=== PATIENT | male | born 1980 | race Caucasian/White ===

== ENCOUNTER 2019-11-19 22:44 | Inpatient (IN) ==
[2019-11-19] MEDS ORDERED: PIPERACILL/TAZOBAC CONSULT ACTIVE PRN (23:25)
[2019-11-19] MEDS ORDERED: PIPERACILLIN/TAZOBACTAM 4.5 GM/120 ML BAG IV ONE (23:25)
[2019-11-19] MEDS ORDERED: VANCOMYCIN HCL 2,000 MG in SODIUM CHLORIDE 0.9% 500 ML IV ONE (23:25)
[2019-11-19] MEDS ORDERED: VANCOMYCIN CONSULT ACTIVE PRN (23:25)
[2019-11-19] MEDS ORDERED: SODIUM CHLORIDE 0.9% 1000ML 1,000 ML IV ONE (23:25)
--- NOTE | 2019-11-19 23:51 | Emergency Department Note ---
History of Present Illness General Chief complaint: Back Injury/Pain Stated complaint: ABCESS RIGHT AXILAE History of Present Illness Maximum Pain Intensity: 9 This 39-year-old prisoner presents to the ER complaining of right axilla infection has been on Bactrim and Rocephin at the present Location: Right axilla Quality: Painful Severity: Moderate Duration: Past few days Timing: Started few days ago Context: Symptoms got worse and patient came in Modifying factors: better with nothing; worse with patient Patient denies diabetes. He complains of subjective fever and chills. No temperature taken. Patient denies chest pain, dyspnea, cough, congestion, IV drug abuse. No diabetes. Home Medications Home Medications Medication Instructions Recorded Confirmed Type ceftriaxone 1 g IM DAILY 11/20/19 11/20/19 History docusate sodium 100 mg PO BID 11/20/19 11/20/19 History hydrochlorothiazide 12.5 mg PO DAILY 11/20/19 11/20/19 History ibuprofen 600 mg PO TID PRN 11/20/19 11/20/19 History losartan 50 mg PO DAILY 11/20/19 11/20/19 History omeprazole 20 mg PO BID 11/20/19 11/20/19 History rosuvastatin 10 mg PO DAILY 11/20/19 11/20/19 History sulfamethoxazole-trimethoprim 1 tab PO BID 11/20/19 11/20/19 History [Bactrim DS] Allergies Allergy/AdvReac Type Severity Reaction Status Date / Time No Known Allergies Allergy Verified 11/20/19 00:02 Past Med/Surg History Medical History High blood pressure Surgical History No pertinent past surgical history Social History Smoking Status: Current some day smoker Tobacco Type: E-cigarettes / Vaping Preferred Language: Citizen Of [place] Feels Safe at Home: Yes Review of Systems A total of 10 systems reviewed and were otherwise negative Physical Exam Vital Signs Vital Signs - 24 hr 11/19/19 22:59 11/20/19 00:04 11/20/19 00:23 Temperature 37.6 C H Temperature Source Oral Pulse Rate 105 H 95 H Pulse Rate from SpO2 Sensor Respiratory Rate 18 13 Respiratory Effort / Characteristics Non-Labored Spontaneous Respiratory Depth Normal Respiratory Pattern Regular Blood Pressure 115/79 124/49 L Blood Pressure Mean 91 83 Pulse Oximetry 98 99 Oxygen Delivery Method Room Air Room Air Sepsis Recent Fever Within 48 Hours No Sepsis New/Unexplained Change in Mental Status No Sepsis Action Taken by Nursing No Action Required 11/20/19 00:24 11/20/19 01:17 11/20/19 01:30 Temperature Temperature Source Pulse Rate 105 H Pulse Rate from SpO2 Sensor Respiratory Rate 20 23 Respiratory Effort / Characteristics Non-Labored Respiratory Depth Respiratory Pattern Blood Pressure 122/72 140/84 Blood Pressure Mean 79 107 Pulse Oximetry 99 98 98 Oxygen Delivery Method Sepsis Recent Fever Within 48 Hours Sepsis New/Unexplained Change in Mental Status Sepsis Action Taken by Nursing 11/20/19 01:31 11/20/19 02:00 11/20/19 02:30 Temperature Temperature Source Pulse Rate 112 H 98 H Pulse Rate from SpO2 Sensor 98 H Respiratory Rate 21 19 18 Respiratory Effort / Characteristics Respiratory Depth Respiratory Pattern Blood Pressure 119/72 116/73 Blood Pressure Mean 85 84 Pulse Oximetry 98 Oxygen Delivery Method Sepsis Recent Fever Within 48 Hours Sepsis New/Unexplained Change in Mental Status Sepsis Action Taken by Nursing VITALS: Vitals are noted on the nurse's note and reviewed by myself. Vital signs mildly tachycardic. GENERAL: White male, in no acute distress, nondiaphoretic, well-developed well- nourished. SKIN: Right axillary region with surrounding cellulitis with a small area of drainage with induration 15 cm x 12 cm, the rest of the skin was without rashes, erythema, edema, or bruising. There is no tenting of the skin. Capillary reflex less than 2 seconds. HEAD: Normocephalic atraumatic. EARS: External auditory canals clear, tympanic membranes pearly mendoza without e rythema or effusion bilaterally. EYES: Pupils equal round and reactive to light and accommodation. Conjunctivae without injection, sclerae without icterus. Extraocular movements intact. NOSE: Patent, turbinates without inflammation or discharge. MOUTH: Mucous membranes moist. Pharynx without erythema or exudate. Uvula midline. Airway patent. Tongue does not deviate. NECK: Supple without nuchal rigidity. No lymphadenopathy. No thyromegaly. Cervical spine is nontender. No JVD. HEART: Regular rate and rhythm LUNGS: Clear to auscultation bilaterally without wheezes, rales or rhonchi. No retractions or accessory muscle use. ABDOMEN: Positive bowel sounds x 4. Normal tympanic percussion. Soft, nontender, without masses or organomegaly. Oquendo sign negative. No guarding or rebound tenderness. No CVA tenderness MUSCULOSKELETAL: No muscle atrophy, erythema, or edema noted. NEURO: Patient was alert and oriented to person place and time. Normal sensation to light and sharp touch. No focal neurological deficits. Course Administered Medications Discontinued Medications Acetaminophen (Ofirmev) Confirm Administered Dose 1,000 mg IV .STK-MED ONE Stop: 11/20/19 01:32 Last Admin: 11/20/19 01:44 Dose: 1,000 mg Documented by: [id number] Piperacillin Sod/Tazobactam Sod (Zosyn) 4.5 gm in 120 mls @ 240 mls/hr IV NOW ONE Stop: 11/19/19 23:54 Last Infusion: 11/20/19 01:13 Dose: 0 mls/hr Documented by: [id number] Admin: 11/20/19 00:40 Dose: 240 mls/hr Documented by: [id number] Vancomycin HCl 2,000 mg/ (Sodium Chloride) 540 mls @ 200 mls/hr IV NOW ONE Stop: 11/20/19 02:06 Last Admin: 11/20/19 01:13 Dose: 200 mls/hr Documented by: [id number] Sodium Chloride (Nss 1000ml) 1,000 mls @ 999 mls/hr IV .Q1H1M ONE Stop: 11/20/19 00:25 Last Infusion: 11/20/19 01:08 Dose: 0 mls/hr Documented by: [id number] Admin: 11/20/19 00:14 Dose: 999 mls/hr Documented by: [id number] Sodium Chloride (Nss 1000ml) 1,000 mls @ 999 mls/hr IV .Q1H1M ONE Stop: 11/20/19 02:45 Last Infusion: 11/20/19 01:46 Dose: 0 mls/hr Documented by: [id number] Admin: 11/20/19 01:46 Dose: 999 mls/hr Documented by: [id number] Acetaminophen (Ofirmev) 1,000 mg in 100 mls @ 400 mls/hr IV NOW STA Stop: 11/20/19 02:00 Last Admin: 11/20/19 01:48 Dose: Not Given Documented by: [id number] Potassium Chloride (Klor-Con M10) 40 meq PO NOW STA Stop: 11/20/19 01:58 Last Admin: 11/20/19 02:21 Dose: 40 meq Documented by: [id number] Medical Decision Making Medical Records Attestation: I reviewed the patient's medical records. Home Medications Current Medication List: was personally reviewed by me Laboratory Data Attestation: I reviewed the patient's lab results. Result diagrams: 11/19/19 23:50 11/19/19 23:50 Lab Results 11/19/19 11/19/19 11/19/19 Range/Units 23:50 23:50 23:50 WBC 30.59 H* (4.8-10.8) K/uL RBC 4.43 L (4.7-6.1) M/uL Hgb 12.7 L (14.0-18.0) g/dL Hct 37.0 L (42-52) % MCV 83.5 (80-100) fL MCH 28.7 (25-34) pg MCHC 34.3 (32-36) g/dL RDW Std Deviation 40.0 (36.4-46.3) fL RDW Coeff of Maurice 13.2 (11.5-14.5) % Plt Count 286 (130-400) K/uL MPV 11.3 H (7.4-10.4) fL Immature Gran % (Auto) 0.5 % Neut % (Auto) 86.7 % Lymph % (Auto) 6.6 % [place] % (Auto) 5.8 % Eos % (Auto) 0.4 % Baso % (Auto) 0.0 % Neut # (Auto) 26.53 H (1.4-6.5) K/uL Lymph # (Auto) 2.01 (1.2-3.4) K/uL [place] # (Auto) 1.78 H (0.11-0.59) K/uL Eos # (Auto) 0.12 (0-0.5) K/uL Baso # (Auto) 0.01 (0-0.2) K/uL Immature Gran # (Auto) 0.14 H (0.00-0.02) K/uL PT 11.5 (9.0-12.0) Seconds INR 1.1 (0.9-1.1) APTT 33.5 H (21.0-31.0) Seconds PTT Ratio 1.2 Sodium 136 (136-145) mmol/L Potassium 3.2 L (3.5-5.1) mmol/L Chloride 103 (98-107) mmol/L Carbon Dioxide 26 (21-32) mmol/L Anion Gap 7.0 (3-11) BUN 13 (7-18) mg/dl Creatinine 1.72 H (0.6-1.4) mg/dl Est Cr Clr Drug Dosing 80.3 ml/min Est GFR ( Amer) 56.8 Est GFR (Non-Af Amer) 49.0 BUN/Creatinine Ratio 7.3 L (10-20) Glucose 108 H (70-99) mg/dl Lactate (0.4-2.0) mmol/L Calcium 9.0 (8.5-10.1) mg/dl Magnesium 1.9 (1.8-2.4) mg/dl Total Bilirubin 1.0 (0.2-1) mg/dl AST 19 (15-37) U/L ALT 47 (12-78) U/L Alkaline Phosphatase 172 H (45-117) U/L Total Protein 7.7 (6.4-8.2) gm/dl Albumin 3.4 (3.4-5.0) gm/dl Globulin 4.3 H (2.5-4.0) gm/dl Albumin/Globulin Ratio 0.8 L (0.9-2) Urine Color Urine Appearance (Clear) Urine pH (4.5-7.5) Ur Specific [place] (1.000-1.030) Urine Protein (Negative) Urine Glucose (UA) (Negative) Urine Ketones (Negative) Urine Blood (Negative) Urine Nitrite (Negative) Urine Bilirubin (Negative) Urine Urobilinogen (Negative) Ur Leukocyte Esterase (Negative) 11/19/19 11/20/19 Range/Units 23:50 01:00 WBC (4.8-10.8) K/uL RBC (4.7-6.1) M/uL Hgb (14.0-18.0) g/dL Hct (42-52) % MCV (80-100) fL MCH (25-34) pg MCHC (32-36) g/dL RDW Std Deviation (36.4-46.3) fL RDW Coeff of Maurice (11.5-14.5) % Plt Count (130-400) K/uL MPV (7.4-10.4) fL Immature Gran % (Auto) % Neut % (Auto) % Lymph % (Auto) % [place] % (Auto) % Eos % (Auto) % Baso % (Auto) % Neut # (Auto) (1.4-6.5) K/uL Lymph # (Auto) (1.2-3.4) K/uL [place] # (Auto) (0.11-0.59) K/uL Eos # (Auto) (0-0.5) K/uL Baso # (Auto) (0-0.2) K/uL Immature Gran # (Auto) (0.00-0.02) K/uL PT (9.0-12.0) Seconds INR (0.9-1.1) APTT (21.0-31.0) Seconds PTT Ratio Sodium (136-145) mmol/L Potassium (3.5-5.1) mmol/L Chloride (98-107) mmol/L Carbon Dioxide (21-32) mmol/L Anion Gap (3-11) BUN (7-18) mg/dl Creatinine (0.6-1.4) mg/dl Est Cr Clr Drug Dosing ml/min Est GFR ( Amer) Est GFR (Non-Af Amer) BUN/Creatinine Ratio (10-20) Glucose (70-99) mg/dl Lactate 1.1 (0.4-2.0) mmol/L Calcium (8.5-10.1) mg/dl Magnesium (1.8-2.4) mg/dl Total Bilirubin (0.2-1) mg/dl AST (15-37) U/L ALT (12-78) U/L Alkaline Phosphatase (45-117) U/L Total Protein (6.4-8.2) gm/dl Albumin (3.4-5.0) gm/dl Globulin (2.5-4.0) gm/dl Albumin/Globulin Ratio (0.9-2) Urine Color Yellow Urine Appearance Clear (Clear) Urine pH 5.0 (4.5-7.5) Ur Specific [place] 1.009 (1.000-1.030) Urine Protein Negative (Negative) Urine Glucose (UA) Negative (Negative) Urine Ketones Negative (Negative) Urine Blood Negative (Negative) Urine Nitrite Negative (Negative) Urine Bilirubin Negative (Negative) Urine Urobilinogen Negative (Negative) Ur Leukocyte Esterase Negative (Negative) Imaging Data Attestation: I personally reviewed and interpreted this imaging study as follows: Blood Pressure Blood Pressure Findings: Normal blood pressure MDM Narrative Prior records reviewed and summarized as above. Triage Nursing notes reviewed. Additional history obtained from correctional officers. The patient's history was concerning for swelling and redness of the skin. Differential diagnosis: Etiologies such as cellulitis, abscess, MRSA infection, DVT, necrotizing fasciitis, dermatitis, drug eruption, as well as others were entertained.. Physical examination: As above ER treatment provided: Zosyn, vancomycin, IV fluids, potassium On reassessment the patient felt better. Diagnostics interpreted by me: The labs revealed leukocytosis, hypokalemia Blood cultures pending, wound culture pending Imaging: Chest x-ray with no acute consolidation, pneumothorax or free air per my interpretation CT CHEST Without Contrast: Subcutaneous soft tissue stranding and edema at the right axilla and anterior upper chest with overlying skin thickening, correlate for cellulitis No evidence of focal fluid collection on noncontrast imaging No soft tissue gas No adenopathy The lungs are clear No pericardial or pleural effusion Radiologist: Hay Woo M.D. Consultation: A consultation was placed with Dr. Chang, hospitalist. The case was discussed and diagnostics were reviewed. The patient was evaluated in the ER for further treatment. This appears to be extensive cellulitis to the right chest wall. Patient has been on antibiotics at the present. Symptoms have been getting worse. He was given IV antibiotics here. Medicine was consulted. He will be evaluated for possible admission. By the evaluation outlined above emergent etiologies such as abscess, necrotizing fasciitis, DVT, as well as others were deemed relatively unlikely. The pt informed about the findings as listed above. All questions were answered and pleased with the treatment. The chart was completed utilizing [employer] voice recognition software. Grammatical errors, random word insertions, pronoun errors, and incomplete sentences are an occassional consequence of this system due to software limitations, ambient noise, and hardware issues. Any formal questions or concerns about the content, text, or information contained within the body of this dictation should be directly addressed to the physician clerical assistant for clarification. Impression & Plan Cellulitis of chest wall, Leukocytosis, Acute hypokalemia Discharge Plan Visit Data Chief Complaint: Back Injury/Pain Stated Complaint: ABCESS RIGHT AXILAE ED Provider: Jeevan Anaya ED Midlevel Provider: Syl Crespo Discharge Problem: Cellulitis of chest wall, Leukocytosis, Acute hypokalemia Patient Disposition: Being Evaluated by Hospitalist Condition: Fair Forms Stand Alone Forms: [facility] Prescriptions Prescriptions: No Action losartan 50 mg Tablet 50 mg PO DAILY RF: 0 sulfamethoxazole-trimethoprim [Bactrim DS] 800-160 mg Tablet 1 tab PO BID RF: 0 ceftriaxone 1 gram Recon Soln 1 g IM DAILY RF: 0 docusate sodium 100 mg Capsule 100 mg PO BID RF: 0 ibuprofen 600 mg Tablet 600 mg PO TID PRN (Reason: Pain) RF: 0 rosuvastatin 10 mg Tablet 10 mg PO DAILY RF: 0 hydrochlorothiazide 12.5 mg Tablet 12.5 mg PO DAILY RF: 0 omeprazole 20 mg Tablet,Delayed Release (Dr/Ec) 20 mg PO BID RF: 0 Referrals Referrals: Indra GUERRERO [Primary Care Provider] -
[2019-11-20 00:14] LABS: INR 1.1 (0.9-1.1); Partial Thromboplastin Ratio 1.2; Partial Thromboplastin Time 33.5 Seconds (21.0-31.0); Prothrombin Time 11.5 Seconds (9.0-12.0)
[2019-11-20 00:19] LABS: Hemoglobin 12.7 g/dL (14.0-18.0); Mean Corpuscular Hemoglobin 28.7 pg (25-34); Mean Corpuscular Hgb Conc 34.3 g/dL (32-36); Mean Corpuscular Volume 83.5 fL (80-100); Mean Platelet Volume 11.3 fL (7.4-10.4); Platelet Count 286 K/uL (130-400); RDW Coefficient of Variation 13.2 % (11.5-14.5); Red Blood Count 4.43 M/uL (4.7-6.1); White Blood Count 30.59 K/uL (4.8-10.8)
[2019-11-20 00:20] LABS: Basophils # (auto) 0.01 K/uL (0-0.2); Eosinophils # (auto) 0.12 K/uL (0-0.5); Eosinophils % (auto) 0.4 %; Immature Granulocytes # (auto) 0.14 K/uL (0.00-0.02); Immature Granulocytes % (auto) 0.5 %; Lymphocytes # (auto) 2.01 K/uL (1.2-3.4); Lymphocytes % (auto) 6.6 %; Monocytes # (auto) 1.78 K/uL (0.11-0.59); Monocytes % (auto) 5.8 %; Neutrophils # (auto) 26.53 K/uL (1.4-6.5); Neutrophils % (auto) 86.7 %
[2019-11-20 00:24] LABS: Albumin Level 3.4 gm/dl (3.4-5.0); BUN Creatinine Ratio 7.3 (10-20); Creatinine Clr Calc Pharmacy 80.3 ml/min; Est GFR (African American) 56.8; Magnesium 1.9 mg/dl (1.8-2.4); Potassium 3.2 mmol/L (3.5-5.1)
[2019-11-20 00:27] LABS: Albumin Globulin Ratio 0.8 (0.9-2); Globulin 4.3 gm/dl (2.5-4.0); Total Protein 7.7 gm/dl (6.4-8.2)
[2019-11-20 01:19] LABS: Appearance Urine Clear (Clear); Bilirubin Urine Negative (Negative); Blood Urine Negative (Negative); Color Urine Yellow; Glucose Urine UA Negative (Negative); Ketones Urine Negative (Negative); Leukocyte Esterase Urine Negative (Negative); Nitrite Urine Negative (Negative); Protein Urine Negative (Negative); Specific Gravity Urine 1.009 (1.000-1.030); Urobilinogen Urine Negative (Negative)
[2019-11-20] MEDS ORDERED: ACETAMINOPHEN 1000 MG/100 ML IV IV ONE (01:31)
[2019-11-20] MEDS ORDERED: SODIUM CHLORIDE 0.9% 1000ML 1,000 ML IV ONE (01:45)
[2019-11-20] MEDS ORDERED: ACETAMINOPHEN 1,000 MG/100 ML VIAL IV STA (01:46)
[2019-11-20] MEDS ORDERED: POTASSIUM CHLORIDE 10 MEQ TABCR PO STA (01:57)
--- NOTE | 2019-11-20 02:56 | History & Physical Report ---
Date of Service November 20, 2019 Assessment & Plan (1) Cellulitis of right axilla: Cellulitis of right axilla and chest wall/failure of outpatient treatment- Patient had been placed on ceftriaxone 1 g IM daily and Bactrim DS p.o. twice daily, both of which will be held. Continue vancomycin IV and Zosyn IV begun in the ED. Proximal border of infection outlined, and should be followed on examination. Present on Admission?: Yes (2) Cellulitis of chest wall: See above Present on Admission?: Yes (3) Failure of outpatient treatment: See above Present on Admission?: Yes (4) Hypertension: Hypertension/hypokalemia- Hold HCTZ. Continue losartan 50 mg p.o. daily. NSS + KCl 20 mEq at 80 mils per hour Repeat labs serially Present on Admission?: Yes (5) Acute hypokalemia: See above Present on Admission?: Yes (6) GERD (gastroesophageal reflux disease): Continue omeprazole 20 mg p.o. twice daily Present on Admission?: Yes (7) Obesity: BMI 42.5. Noted as risk factor for vascular disease Present on Admission?: Yes History of Present Illness Chief Complaint: Patient presents to the emergency department with worsening right axillary and upper chest wall redness, swelling and pain despite use of Bactrim and another antibiotic Primary Care Provider: [facility] The patient is a 39-year-old male resident of [facility], with a past medical history including hypertension and GERD. He reports that after shaving his axilla, he developed redness, swelling and pain, that did not improve despite being placed on ceftriaxone 1 g IM daily and Bactrim DS p.o. twice daily. He was brought to the ED for further assessment, with work-up in ED including a CT scan which did not show a drainable fluid pocket. Allergies Allergy/AdvReac Type Severity Reaction Status Date / Time No Known Allergies Allergy Verified 11/20/19 00:02 Home Medications Home Medications Medication Instructions Recorded Confirmed Type ceftriaxone 1 g IM DAILY 11/20/19 11/20/19 History docusate sodium 100 mg PO BID 11/20/19 11/20/19 History hydrochlorothiazide 12.5 mg PO DAILY 11/20/19 11/20/19 History ibuprofen 600 mg PO TID PRN 11/20/19 11/20/19 History losartan 50 mg PO DAILY 11/20/19 11/20/19 History omeprazole 20 mg PO BID 11/20/19 11/20/19 History rosuvastatin 10 mg PO DAILY 11/20/19 11/20/19 History sulfamethoxazole-trimethoprim 1 tab PO BID 11/20/19 11/20/19 History [Bactrim DS] Past Med/Surg History Medical History High blood pressure Surgical History No pertinent past surgical history Social History Smoking Status: Former smoker Tobacco Type: E-cigarettes / Vaping Cigarettes Per Day: pt is in fdc, states he vapes; Preferred Language: [place] Beliefs That Will Affect Care: None Current Living Situation: Other Current Living Situation Comment: [facility] Feels Safe at Home: Yes Review of Systems Review of Systems: The patient denies chest pain, palpitations, shortness of breath, dyspnea on exertion, cough, lower extremity swelling, sore throat, chills, sweats, weight change, fatigue, nausea, vomiting, diarrhea , constipation, abdominal pain, pelvic pain, blood in urine or stool, dysuria, urinary frequency or urgency, lightheadedness, dizziness, headache, memory loss, imbalance, focal or generalized weakness, numbness or tingling in arms or legs, generalized arthralgias or myalgias, back or neck pain, or night sweats. The review of systems is otherwise negative other than for that already noted above, and at least 10 systems have been reviewed. Physical Exam Physical Exam: The patient is awake, alert and oriented 3, well developed and well nourished, normocephalic and atraumatic, lying in bed and in no acute distress. HEENT--PERRL, EOMI, mucous membranes and oropharynx normal. Neck--supple. No JVD. No bruits. Thyroid normal, trachea midline, no adenopathy. Heart--normal S1 and S2. No murmurs, rubs or gallops. Lungs--clear bilaterally, no respiratory distress, no accessory muscle use. Abdomen--normal bowel sounds and soft. Nontender. Nondistended. Extremities--no cyanosis or clubbing. No edema. There are good distal pulses b/l. Dermatologic--moderately severe erythema, warmth and pain in right axilla extending onto lateral pectoralis area. Neurologic--cranial nerves II through XII grossly intact. Rheumatologic--normal range of motion. Psychiatric--normal affect. Results & Data Results & Data ([facility]) Vital Signs (Past 12 Hours) Vital Signs Temp Pulse Resp BP Pulse Ox 11/20/19 02:30 18 116/73 11/20/19 02:00 98 H 19 119/72 98 11/20/19 01:31 112 H 21 11/20/19 01:30 23 140/84 98 11/20/19 01:17 105 H 20 122/72 98 11/20/19 00:24 99 11/20/19 00:23 99 11/20/19 00:04 95 H 13 124/49 L 11/19/19 22:59 99.7 F H 105 H 18 115/79 98 Laboratory Results Laboratory Results WBC 30.59 K/uL (4.8-10.8) H* 11/19/19 23:50 RBC 4.43 M/uL (4.7-6.1) L 11/19/19 23:50 Hgb 12.7 g/dL (14.0-18.0) L 11/19/19 23:50 Hct 37.0 % (42-52) L 11/19/19 23:50 MCV 83.5 fL (80-100) 11/19/19 23:50 MCH 28.7 pg (25-34) 11/19/19 23:50 MCHC 34.3 g/dL (32-36) 11/19/19 23:50 RDW Std Deviation 40.0 fL (36.4-46.3) 11/19/19 23:50 RDW Coeff of Maurice 13.2 % (11.5-14.5) 11/19/19 23:50 Plt Count 286 K/uL (130-400) 11/19/19 23:50 MPV 11.3 fL (7.4-10.4) H 11/19/19 23:50 Immature Gran % (Auto) 0.5 % 11/19/19 23:50 Neut % (Auto) 86.7 % 11/19/19 23:50 Lymph % (Auto) 6.6 % 11/19/19 23:50 [place] % (Auto) 5.8 % 11/19/19 23:50 Eos % (Auto) 0.4 % 11/19/19 23:50 Baso % (Auto) 0.0 % 11/19/19 23:50 Neut # (Auto) 26.53 K/uL (1.4-6.5) H 11/19/19 23:50 Lymph # (Auto) 2.01 K/uL (1.2-3.4) 11/19/19 23:50 [place] # (Auto) 1.78 K/uL (0.11-0.59) H 11/19/19 23:50 Eos # (Auto) 0.12 K/uL (0-0.5) 11/19/19 23:50 Baso # (Auto) 0.01 K/uL (0-0.2) 11/19/19 23:50 Immature Gran # (Auto) 0.14 K/uL (0.00-0.02) H 11/19/19 23:50 PT 11.5 Seconds (9.0-12.0) 11/19/19 23:50 INR 1.1 (0.9-1.1) 11/19/19 23:50 APTT 33.5 Seconds (21.0-31.0) H 11/19/19 23:50 PTT Ratio 1.2 11/19/19 23:50 Sodium 136 mmol/L (136-145) 11/19/19 23:50 Potassium 3.2 mmol/L (3.5-5.1) L 11/19/19 23:50 Chloride 103 mmol/L (98-107) 11/19/19 23:50 Carbon Dioxide 26 mmol/L (21-32) 11/19/19 23:50 Anion Gap 7.0 (3-11) 11/19/19 23:50 BUN 13 mg/dl (7-18) 11/19/19 23:50 Creatinine 1.72 mg/dl (0.6-1.4) H 11/19/19 23:50 Est Cr Clr Drug Dosing 80.3 ml/min 11/19/19 23:50 Est GFR ( Amer) 56.8 11/19/19 23:50 Est GFR (Non-Af Amer) 49.0 11/19/19 23:50 BUN/Creatinine Ratio 7.3 (10-20) L 11/19/19 23:50 Glucose 108 mg/dl (70-99) H 11/19/19 23:50 Lactate 1.1 mmol/L (0.4-2.0) 11/19/19 23:50 Calcium 9.0 mg/dl (8.5-10.1) 11/19/19 23:50 Magnesium 1.9 mg/dl (1.8-2.4) 11/19/19 23:50 Total Bilirubin 1.0 mg/dl (0.2-1) 11/19/19 23:50 AST 19 U/L (15-37) 11/19/19 23:50 ALT 47 U/L (12-78) 11/19/19 23:50 Alkaline Phosphatase 172 U/L (45-117) H 11/19/19 23:50 Total Protein 7.7 gm/dl (6.4-8.2) 11/19/19 23:50 Albumin 3.4 gm/dl (3.4-5.0) 11/19/19 23:50 Globulin 4.3 gm/dl (2.5-4.0) H 11/19/19 23:50 Albumin/Globulin Ratio 0.8 (0.9-2) L 11/19/19 23:50 Urine Color Yellow 11/20/19 01:00 Urine Appearance Clear (Clear) 11/20/19 01:00 Urine pH 5.0 (4.5-7.5) 11/20/19 01:00 Ur Specific [place] 1.009 (1.000-1.030) 11/20/19 01:00 Urine Protein Negative (Negative) 11/20/19 01:00 Urine Glucose (UA) Negative (Negative) 11/20/19 01:00 Urine Ketones Negative (Negative) 11/20/19 01:00 Urine Blood Negative (Negative) 11/20/19 01:00 Urine Nitrite Negative (Negative) 11/20/19 01:00 Urine Bilirubin Negative (Negative) 11/20/19 01:00 Urine Urobilinogen Negative (Negative) 11/20/19 01:00 Ur Leukocyte Esterase Negative (Negative) 11/20/19 01:00 Diagnostic Findings [place], [place] [phone] CT Scan Report Patient: ARLEEN KHAN EAdmit Date: 11/19/19 MR#: [id number]: [address] Acct ID:[id number]: Date: 08/27/1948City Zip: [place] [address] Age: 71Location: ED Sex: M Room/Bed: Att Phy:Diagnosis: FEVER Debbie Phy: Dariel Barba, MDService Date: 11/19/19 Fam Phy:Interpreting Phy: Philip Tena MD Admit Phy: Ordering Phy: Jeevan Anaya MD cc: ~ CT SCAN OF THE BRAIN WITHOUT IV CONTRAST CLINICAL HISTORY: Change in mental status. COMPARISON STUDY: CT of the brain dated 07/22/2018. TECHNIQUE: Unenhanced axial CT scan of the brain is performed from the vertex to the skull base. A dose lowering technique was utilized adhering to the principles of ALARA. CT DOSE: 1368.34 mGycm FINDINGS: Brain parenchyma: There are age-related involutional changes noting mild subcortical and periventricular microangiopathic change. There is no hemorrhage, mass effect, or evidence of acute territorial ischemia by CT criteria. Martínez- white matter differentiation is preserved. No extra-axial fluid collection is seen. Ventricles, sulci, cisterns: Prominent secondary to involutional change. Intracranial vasculature: There is atherosclerotic calcification of the cavernous carotid arteries. Calvarium: Unremarkable. Sinuses and mastoids: There is subtotal opacification of left sphenoid sinus. Thickening and sclerosis of the sinus wall indicates chronicity. Trace fluid is noted in the right sphenoid sinus. Moderate mucosal thickening seen within the anterior ethmoid sinuses and the right frontal sinus. The mastoid air cells are well pneumatized. Orbits: The bony orbits are grossly intact. There are bilateral ocular lens implants. IMPRESSION: 1. There is no hemorrhage, mass effect, or evidence of acute territorial ischemia by CT criteria. 2. Paranasal sinus disease as above. ACT 112: Negative or not required by law. Electronically signed by: Philip Tena M.D. 11/19/2019 10:00 PM Dictated: 11/19/192157 Transcribed: 11/19/192157 Code Status & VTE Plan Code Status Full code VTE Prophylaxis Plan VTE Prophylaxis will be ordered: Yes PG Care Time/CCT Total # of Minutes Spent Total Time Spent with Patient: Total time spent is greater than 50% in coordination of care (as documented) at patient's floor/unit and/or counseling patient: Coding Level of Care Code 45216 Initial Inpt Care Lvl 3 Diagnoses Cellulitis of right axilla L03.111 Cellulitis of chest wall L03.313 Failure of outpatient treatment Z78.9 Hypertension I10 Acute hypokalemia E87.6 GERD (gastroesophageal reflux disease) K21.9 Obesity E66.9
[2019-11-20] MEDS ORDERED: ONDANSETRON INJ 2 MG/ML 2 ML VIAL IV PRN (03:55)
[2019-11-20] MEDS ORDERED: VANCOMYCIN HCL 1,000 MG in SODIUM CHLORIDE 0.9% 250 ML IV SCH (03:55)
[2019-11-20] MEDS ORDERED: ALUMINUM/MAGNESIUM SUSP 30 ML UDC PO PRN (03:55)
[2019-11-20] MEDS ORDERED: PIPERACILL/TAZOBAC CONSULT ACTIVE PRN (03:55)
[2019-11-20] MEDS ORDERED: MAGNESIUM HYDROXIDE SUSP 30 ML UDC PO PRN (03:55)
[2019-11-20] MEDS ORDERED: VANCOMYCIN CONSULT ACTIVE PRN (03:55)
[2019-11-20] MEDS: NSS + 20MEQ KCL 20 MEQ/1,000 ML BAG IV SCH ×2 (04:47→17:12)
[2019-11-20] MEDS: PIPERACILLIN/TAZOBACTAM 4.5 GM in DEXTROSE 5% 100 ML IV SCH ×3 (05:36→22:25)
--- NOTE | 2019-11-20 07:29 | XRay Report ---
XR chest 1V portable HISTORY: 39 years-old Male SEPSIS acute sepsis COMPARISON: Chest CT 11/20/2019 TECHNIQUE: Portable AP view of the chest FINDINGS: Cardiomediastinal and hilar silhouettes are within normal limits. There is no pneumothorax, pleural e ffusion, airspace consolidation or overt pulmonary edema. The bones of the chest appear grossly intac t. IMPRESSION: No acute process. ACT 112: Negative or not required by law. The above report was generated using voice recognition software. It may contain grammatical, syntax o r spelling errors. Electronically signed by: Jean Paul Apodaca M.D. 11/20/2019 7:27 AM
[2019-11-20] MEDS: TRAMADOL HCL 50 MG TABLET PO PRN ×3 (08:03→20:20)
[2019-11-20] MEDS: DOCUSATE SODIUM 100 MG CAP PO SCH ×2 (08:03→20:21)
[2019-11-20] MEDS: PANTOprazole 40 MG TAB PO SCH ×2 (08:04→20:22)
[2019-11-20] MEDS: LOSARTAN POTASSIUM 50 MG TAB PO SCH (08:04)
[2019-11-20] MEDS: ROSUVASTATIN CALCIUM 10 MG TAB PO SCH (08:04)
--- NOTE | 2019-11-20 08:21 | CT Scan Report ---
CT chest wo con CT DOSE: 1247.49 mGy.cm CLINICAL HISTORY: 39 years-old Male with right arm pit infx, ? abcess. Acute soft tissue swelling of the right axilla TECHNIQUE: Multiaxial CT images of the chest were performed without contrast. A dose lowering techni que was utilized adhering to the principles of ALARA. COMPARISON: Chest radiograph of same day FINDINGS: Unremarkable thyroid. Minimal residual thymic tissue of the anterior mediastinum. Prominent nonenlarg ed paratracheal and subcarinal lymph nodes measuring up to 9 mm are likely on a reactive basis. Heart is normal in size. Minimal coronary artery calcifications. No thoracic aortic aneurysm. There is no pneumothorax or pleural effusion. No airspace consolidation, overt pulmonary edema or airspace consol idation typical for pneumonia. The central airways are patent. No acute process of the imaged upper a bdomen. There is mild nonspecific bilateral perinephric stranding. Hepatic steatosis. There is modera te subcutaneous edema and skin thickening of the right axilla, prepectoral and subpectoral tissues wi th mildly enlarged right axillary lymph nodes measuring up to 1.4 cm. No drainable fluid collection o r soft tissue mass. Bones appear intact. There are no suspicious bone lesions. IMPRESSION: 1. Moderate subcutaneous edema and skin thickening of the right axilla, prepectoral and subpectoral t issues suggestive of cellulitis with phlegmon. No discrete abscess. 2. Mildly enlarged right axillary lymph nodes are likely reactive. 3. No pleural effusion or airspace consolidation typical for pneumonia. ACT 112: Negative or not required by law. Electronically signed by: Jean Paul Apodaca M.D. 11/20/2019 8:20 AM
--- NOTE | 2019-11-20 09:49 | Pharmacy Report ---
Pharmacy Abx Initial Consult - Date of Service November 20, 2019 - Pharmacy Dosing Scope Date of Consult: 11/20/19 Consultation requested by: Dr. Murphy Pharmacy is consulted to initiate vancomycin and Zosyn IV dosing therapy, order appropriate labs and adjust drug dose/frequency. - Subjective The patient is a 39 year old M admitted on 11/20/19 02:53. - Objective Height: 5 ft 10 in Weight: 134.2 kg Vital Signs (Past 12hrs): Vital Signs Temp Pulse Pulse Resp BP BP BP 11/20/19 07:21 36.8 C 98 H 18 138/88 11/20/19 06:19 94 H 11/20/19 04:16 36.8 C 86 20 146/90 H 11/20/19 03:30 92 H 18 11/20/19 03:00 92 H 22 117/66 11/20/19 02:30 18 116/73 11/20/19 02:00 98 H 19 119/72 11/20/19 01:31 112 H 21 11/20/19 01:30 23 140/84 11/20/19 01:17 105 H 20 122/72 11/20/19 00:24 11/20/19 00:23 11/20/19 00:04 95 H 13 124/49 L 11/19/19 22:59 37.6 C H 105 H 18 115/79 Pulse Ox 11/20/19 07:21 98 11/20/19 06:19 11/20/19 04:16 98 11/20/19 03:30 98 11/20/19 03:00 96 11/20/19 02:30 11/20/19 02:00 98 11/20/19 01:31 11/20/19 01:30 98 11/20/19 01:17 98 11/20/19 00:24 99 11/20/19 00:23 99 11/20/19 00:04 11/19/19 22:59 98 Lab Results (24hrs): Laboratory Tests (24 Hours) 11/19/19 11/19/19 23:50 23:50 WBC 30.59 H* Neut # (Auto) 26.53 H Creatinine 1.72 H Est Cr Clr Drug Dosing 80.3 Micro Results: 11/19/19 23:25 Gram Stain - Final Arm,Right Deep Wound Culture - Pending 11/19/19 00:39 Aerobic Blood Culture - Pending Blood Anaerobic Blood Culture - Pending 11/19/19 23:50 Aerobic Blood Culture - Pending Blood Anaerobic Blood Culture - Pending - Assessment & Plan Assessment * 39 year old M who presented to [facility] for upper chest wall redness, swelling and pain despite being on ceftriaxone 1 g IM daily and Bactrim DS p.o. twice daily as an outpatient * Placed on vancomcyin and Zosyn empirically in the Emergency Department * Blood, R arm wound cultures obtained and pending * Scr 1.72 upon admission. Could not confirm baseline. Repeat SCr ordered for 11/20 with AM labs. Plan Vancomycin IV * Estimated PK Parameters: Vd 0.5 L/kg, Herve 0.066 hr-1, t1/2 10.5 hr * Loading dose: 2000 mg (15 mg/kg) * Maintenance dose: 1000 mg IV (~8 mg/kg) every 12 hours * Goal trough level for: 10 to 15 mcg/mL * Will assess renal function tomorrow morning. Dose/frequency may need adjusted. Trough will also be ordered at this time. * A less than traditional dose has been selected due to likelihood of drug accumulation in obese patient. Piperacillin/tazobactam * 4.5 g bolus administered over 30 minutes, then 4.5 g IV extended infusion every 8 hours for CrCl greater than 20 mL/min * Aggressive dosing selected due to BMI 35 or more Pharmacy will continue to follow and will adjust dose/frequency as necessary. Thank you.
[2019-11-20] MEDS: VANCOMYCIN HCL 1,000 MG in SODIUM CHLORIDE 0.9% 250 ML IV SCH (12:08)
--- NOTE | 2019-11-20 14:14 | Hospitalist Progress Note ---
Date of Service November 20, 2019 Assessment & Plan (1) Cellulitis of right axilla: Cellulitis of right axilla and chest wall/failure of outpatient treatment with ceftriaxone and Bactrim. - Continue vanc/Zosyn - Proximal border of infection outlined and should be followed on examination -> Improving. - Follow blood and drainage culture. (2) Hypertension: BP is 125/75 today. - Hold HCTZ for low K+ - Continue losartan (3) GERD (gastroesophageal reflux disease): - Continue PPI (4) Obesity: BMI 42.5. Noted as risk factor for vascular disease. (5) DVT prophylaxis: Heparin 5000 units Q12h Admission and Anticipated Discharge Date Admission Date: November 20, 2019 Subjective Some improvement already on IV abx. Still painful in the right axillary region. Reports no fevers/chills, chest pain, shortness of breath, abdominal pain, nausea, or vomiting. Physical Exam Constitutional: WD/WN, vitals as above Eyes: EOM intact bilaterally; no conjunctival abnormality ENMT: external ear and nose normal, oropharynx normal Neck: trachea midline, no thyromegaly normal visual inspection Respiratory: normal respiratory effort, lungs clear to auscultation no respiratory distress Cardiovascular: RRR, no murmur, no edema Gastrointestinal (Abdomen): Inspection/Auscultation: abdomen normal to inspection; abdomen not distended Musculoskeletal: no cyanosis or clubbing, extremities motor strength 5/5 Skin: + induration (Right axillary. Outlined with ink. Drainage.) and + wound Neurologic: moves all extremities and awake Psychiatric: Orientation: alert, oriented to person and cooperative Results & Data Results & Data ([facility]) Vital Signs (Past 12 Hours) Vital Signs Temp Pulse Pulse Resp BP BP BP 11/20/19 11:27 37.2 C 82 18 126/76 11/20/19 07:21 36.8 C 98 H 18 138/88 11/20/19 06:19 94 H 11/20/19 04:16 36.8 C 86 20 146/90 H 11/20/19 03:30 92 H 18 11/20/19 03:00 92 H 22 117/66 11/20/19 02:30 18 116/73 Pulse Ox 11/20/19 11:27 99 11/20/19 07:21 98 11/20/19 06:19 11/20/19 04:16 98 11/20/19 03:30 98 11/20/19 03:00 96 11/20/19 02:30 PG Care Time/CCT Total # of Minutes Spent Total Time Spent with Patient: Total time spent is greater than 50% in coordination of care (as documented) at patient's floor/unit and/or counseling patient: Coding Level of Care Code 97191 Subseq Hosp Care Lvl 3 Diagnoses Cellulitis of right axilla L03.111 Hypertension I10 GERD (gastroesophageal reflux disease) K21.9 Obesity E66.9 DVT prophylaxis Z29.9
[2019-11-20] MEDS: ACETAMINOPHEN 325 MG TAB PO PRN (20:20)
[2019-11-20] MEDS ORDERED: HEPARIN SODIUM (PORCINE) 7,500 UNITS in SYRINGE 0 ML SQ SCH (21:00)
[2019-11-20] MEDS ORDERED: MoRPHine SULFATE 2 MG/ML CARP IV STA (22:41)
[2019-11-21] MEDS: VANCOMYCIN HCL 1,000 MG in SODIUM CHLORIDE 0.9% 250 ML IV SCH (00:46)
[2019-11-21] MEDS: TRAMADOL HCL 50 MG TABLET PO PRN ×3 (02:10→11:46)
[2019-11-21] MEDS: NSS + 20MEQ KCL 20 MEQ/1,000 ML BAG IV SCH ×2 (05:51→18:16)
[2019-11-21] MEDS: PIPERACILLIN/TAZOBACTAM 4.5 GM in DEXTROSE 5% 100 ML IV SCH ×3 (05:51→21:35)
[2019-11-21] MEDS ORDERED: MoRPHine SULFATE 4 MG/ML 1 ML CARP\\VIAL IV STA (05:54)
[2019-11-21] MEDS: LOSARTAN POTASSIUM 50 MG TAB PO SCH (07:34)
[2019-11-21] MEDS: ROSUVASTATIN CALCIUM 10 MG TAB PO SCH (07:34)
[2019-11-21] MEDS: DOCUSATE SODIUM 100 MG CAP PO SCH ×2 (07:35→20:52)
[2019-11-21] MEDS: PANTOprazole 40 MG TAB PO SCH ×2 (07:36→20:52)
[2019-11-21 07:54] LABS: Hematocrit (blood only) 36.1 % (42-52); Hemoglobin 11.9 g/dL (14.0-18.0); Mean Corpuscular Volume 84.9 fL (80-100); Mean Platelet Volume 11.6 fL (7.4-10.4); Platelet Count 293 K/uL (130-400); RDW Coefficient of Variation 13.6 % (11.5-14.5); RDW Standard Deviation 41.8 fL (36.4-46.3); Red Blood Count 4.25 M/uL (4.7-6.1); White Blood Count 21.86 K/uL (4.8-10.8)
[2019-11-21 08:25] LABS: BUN Creatinine Ratio 7.5 (10-20); Calcium 8.4 mg/dl (8.5-10.1); Est GFR (African American) 94.4; Est GFR (Non-African American) 81.4; Potassium 3.3 mmol/L (3.5-5.1)
[2019-11-21] MEDS ORDERED: HEPARIN SOD 5,000 UNIT/0.5 ML VIAL SQ SCH (09:00)
[2019-11-21] MEDS ORDERED: POTASSIUM CHLORIDE 20 MEQ TABCR PO ONE (09:45)
--- NOTE | 2019-11-21 11:24 | Ultrasound Report ---
ULTRASOUND OF THE RIGHT AXILLA CLINICAL HISTORY: Cellulitis. COMPARISON STUDY: CHEST CT dated 11/20/2019. FINDINGS: Real-time, grayscale, and color flow sonography of the soft tissues of the right axilla is performed at the indicated site of interest. Soft tissue edema and subcutaneous fluid is noted in the right axilla. There is focal phlegmonous change seen laterally which measures 3.1 x 1.2 x 1.6 cm. No organized/drainable fluid collection is seen at this time. IMPRESSION: 1. Soft tissue edema subcutaneous fluid in the right axilla is consistent with reported history of sy novitis. 2. There is a 3.1 cm focus of phlegmonous change in the right axilla with no organized/drainable flui d collection seen at this time. Electronically signed by: Philip Tena M.D. 11/21/2019 11:22 AM
[2019-11-21] MEDS: ACETAMINOPHEN 325 MG TAB PO PRN (11:45)
[2019-11-21] MEDS: CLINDAMYCIN 600 MG in DEXTROSE 5% 50 ML IV SCH ×2 (12:06→19:33)
[2019-11-21] MEDS: VANCOMYCIN HCL 1,500 MG in SODIUM CHLORIDE 0.9% 500 ML IV SCH (12:41)
--- NOTE | 2019-11-21 13:00 | Hospitalist Progress Note ---
Date of Service November 21, 2019 Assessment & Plan (1) Cellulitis of right axilla: Cellulitis of right axilla and chest wall/failure of outpatient treatment with ceftriaxone and Bactrim. - Continue vanc/Zosyn - Proximal border of infection outlined and should be followed on examination -> Worse today. Has clearly gone past the areas outlined. Will re-outline today. - Ultrasound shows phlegmon, but no abscess at present. NO indication of fascitis either on imaging or physical exam. - Follow blood and drainage culture. (2) Hypertension: BP is 140/90 today. - Hold HCTZ for low K+ - Continue losartan (3) GERD (gastroesophageal reflux disease): - Continue PPI (4) Obesity: BMI 42.5. Noted as risk factor for vascular disease. (5) DVT prophylaxis: Heparin 5000 units Q12h Admission and Anticipated Discharge Date Admission Date: November 20, 2019 Subjective Continued pain and the cellulitis is slightly larger than the outlined area. Had some fevers overnight. Reports no fevers/chills, chest pain, shortness of breath, abdominal pain, nausea, or vomiting. Physical Exam Constitutional: WD/WN, vitals as above Eyes: EOM intact bilaterally; no conjunctival abnormality ENMT: external ear and nose normal, oropharynx normal Neck: trachea midline, no thyromegaly normal visual inspection Respiratory: normal respiratory effort, lungs clear to auscultation no respiratory distress Cardiovascular: RRR, no murmur, no edema Gastrointestinal (Abdomen): Inspection/Auscultation: abdomen normal to inspection; abdomen not distended Musculoskeletal: no cyanosis or clubbing, extremities motor strength 5/5 Skin: + induration (Right axillary. Outlined with ink. Drainage.) and + wound Neurologic: moves all extremities and awake Psychiatric: Orientation: alert, oriented to person and cooperative Results & Data Results & Data ([facility]) Vital Signs (Past 12 Hours) Vital Signs Temp Pulse Resp BP Pulse Ox 11/21/19 11:36 37.6 C H 92 H 18 141/87 H 98 11/21/19 07:29 37.2 C 90 18 128/76 98 PG Care Time/CCT Total # of Minutes Spent Total Time Spent with Patient: Total time spent is greater than 50% in coordination of care (as documented) at patient's floor/unit and/or counseling patient: Coding Level of Care Code 71302 Subseq Hosp Care Lvl 3 Diagnoses Cellulitis of right axilla L03.111 Hypertension I10 GERD (gastroesophageal reflux disease) K21.9 Obesity E66.9 DVT prophylaxis Z29.9
--- NOTE | 2019-11-21 15:09 | Surgery Consultation ---
Date of Consultation November 21, 2019 Assessment & Plan (1) Soft tissue abscess: This does appear to be worsening. He is at risk for bacteremia. His pain is much worse as is the redness. I do believe we should proceed with incision and drainage in the operating room. I discussed his options and answered his questions. We also discussed the risks. He agrees. We will schedule him this afternoon for incision and drainage of right axillary abscess. History of Present Illness Attending Physician: Prasanna Martinez MD History of Present Illness Patient is an inmate at a local correctional facility. He states that he shaved his armpit about a week ago. He subsequently got infected hair which he tried to squeeze himself. This subsequently has turned into a cellulitis involving his upper chest wall axilla and around to his flank. He had a CT scan as well as ultrasound. It does show phlegmonous change. The patient himself can squeeze some purulent fluid. He is quite uncomfortable and the pain is worsening. The marked erythema is also enlarging. Allergies Allergy/AdvReac Type Severity Reaction Status Date / Time No Known Allergies Allergy Verified 11/20/19 00:02 Home Medications Home Medications Medication Instructions Recorded Confirmed Type ceftriaxone 1 g IM DAILY 11/20/19 11/20/19 History docusate sodium 100 mg PO BID 11/20/19 11/20/19 History hydrochlorothiazide 12.5 mg PO DAILY 11/20/19 11/20/19 History ibuprofen 600 mg PO TID PRN 11/20/19 11/20/19 History losartan 50 mg PO DAILY 11/20/19 11/20/19 History omeprazole 20 mg PO BID 11/20/19 11/20/19 History rosuvastatin 10 mg PO DAILY 11/20/19 11/20/19 History sulfamethoxazole-trimethoprim 1 tab PO BID 11/20/19 11/20/19 History [Bactrim DS] Patient History Medical History (Updated 11/21/19 @ 15:07 by Iván Mims DO) GERD (gastroesophageal reflux disease) Hypertension Obesity Surgical History No pertinent past surgical history Social History Smoking Status: Former smoker Tobacco Type: E-cigarettes / Vaping Cigarettes Per Day: pt is in [facility], states he vapes; Preferred Language: [place] Communication Ability: Effective Beliefs That Will Affect Care: None marital status: Single Current Living Situation: Other Current Living Situation Comment: [facility] Feels Safe at Home: Yes Review of Systems Review of Systems: All systems reviewed & are unremarkable except as noted in HPI & below Physical Exam Constitutional: WD/WN, vitals as above no acute distress and not ill appearing Eyes: PERRL, conjunctivae normal, anicteric sclerae EOM intact bilaterally ENMT: external ear and nose normal, oropharynx normal Ears: no hearing impairment Neck: trachea midline, no thyromegaly Respiratory: normal respiratory effort; no respiratory distress and does not use accessory muscles Cardiovascular: Rate/Rhythm: regular rate and regular rhythm Gastrointestinal (Abdomen): normal bowel sounds, soft, nontender, no hepatosplenomegaly Skin: Red warm edematous changes to his right upper chest wall and axilla. It is exquisitely tender and blanches. It does appear to be consistent with a developing abscess. Psychiatric: Orientation: alert, oriented x 3 and cooperative Results & Data Vital Signs (Past 12 Hours) Vital Signs Temp Pulse Resp BP Pulse Ox 11/21/19 11:36 37.6 C H 92 H 18 141/87 H 98 11/21/19 07:29 37.2 C 90 18 128/76 98 PG Care Time/CCT Total # of Minutes Spent Total Time Spent with Patient: Total time spent is greater than 50% in coordination of care (as documented) at patient's floor/unit and/or counseling patient: Coding Level of Care Code 83178 Office/OBS Consult Lvl 3 Diagnoses Soft tissue abscess L02.91
--- NOTE | 2019-11-21 16:31 | Anesthesiology Consultation ---
Date of Service November 21, 2019 Assessment & Plan (1) Encounter for pre-operative examination: Chart Review Chart Review: Acceptable Risk for Surgery (Checking for COVID testing) History Surgery Operation Date: 11/21/19 20:00 Proposed Procedures p Incision and Drainage General(Right) - Iván Mims DO Height/Weight Height: 5 ft 10 in Weight: 134.2 kg Allergies Allergy/AdvReac Type Severity Reaction Status Date / Time No Known Allergies Allergy Verified 11/20/19 00:02 Medications Home Medications Medication Instructions Recorded Confirmed Last Taken ceftriaxone 1 g IM DAILY 11/20/19 11/20/19 11/19/19 docusate sodium 100 mg PO BID 11/20/19 11/20/19 11/19/19 hydrochlorothiazide 12.5 mg PO DAILY 11/20/19 11/20/19 11/19/19 ibuprofen 600 mg PO TID PRN 11/20/19 11/20/19 Unknown losartan 50 mg PO DAILY 11/20/19 11/20/19 11/19/19 omeprazole 20 mg PO BID 11/20/19 11/20/19 11/19/19 rosuvastatin 10 mg PO DAILY 11/20/19 11/20/19 11/19/19 sulfamethoxazole-trimethoprim 1 tab PO BID 11/20/19 11/20/19 11/19/19 [Bactrim DS] Active Medications Generic Name Dose Route Start Last Admin Trade Name Freq PRN Reason Stop Dose Admin Acetaminophen 650 mg 11/20/19 03:55 11/21/19 11:45 Tylenol PO 12/20/19 03:54 650 mg Q4H PRN Administration Pain or Fever Docusate Sodium 100 mg 11/20/19 09:00 11/21/19 07:35 Colace PO 12/20/19 08:59 100 mg BID YOCASTA Administration Heparin Sodium (Porcine) 5,000 units 11/21/19 09:00 11/21/19 08:41 Heparin Sodium (Porcine) SQ 12/21/19 08:59 5,000 units Q12 YOCASTA Administration Piperacillin Sod/Tazobactam 120 mls @ 30 mls/hr 11/20/19 06:00 11/21/19 15:29 Sod 4.5 gm/ Dextrose IV 11/27/19 05:59 30 mls/hr Q8H YOCASTA Administration Protocol Potassium Chloride/Sodium Chloride 20 meq in 1,000 mls @ 80 mls/hr 11/20/19 03:55 11/21/19 13:42 Normal Saline W/20 Meq Kcl IV 12/20/19 03:54 80 mls/hr .[id number] YOCASTA Infusion Vancomycin HCl 1,500 mg/ 530 mls @ 200 mls/hr 11/21/19 12:00 11/21/19 15:29 Sodium Chloride IV 11/27/19 11:59 Infused Q12H YOCASTA Infusion Protocol Clindamycin Phosphate 600 mg/ 54 mls @ 100 mls/hr 11/21/19 12:00 11/21/19 12:40 Dextrose IV 11/28/19 10:29 Infused Q8H YOCASTA Infusion Losartan Potassium 50 mg 11/20/19 09:00 11/21/19 07:34 Cozaar PO 12/20/19 08:59 50 mg DAILY YOCASTA Administration Pantoprazole Sodium 40 mg 11/20/19 09:00 11/21/19 07:36 Protonix PO 12/20/19 08:59 40 mg BID YOCASTA Administration Rosuvastatin Calcium 10 mg 11/20/19 09:00 11/21/19 07:34 Crestor PO 12/20/19 08:59 Not Given DAILY YOCASTA Tramadol HCl 50 mg 11/20/19 03:55 11/21/19 11:46 Ultram PO 12/20/19 03:54 50 mg Q4H PRN Administration Moderate Pain NPO Date Last Intake of Fluids: 11/21/19 Time Last Intake of Fluids: 14:30 Date Last Intake of Solids: 11/21/19 Time Last Intake of Solids: 13:00 Past Medical History Medical History GERD (gastroesophageal reflux disease) Hypertension Obesity Past Surgical History Surgical History No pertinent past surgical history Social History Smoking Status: Former smoker Smoking cigarettes per day: pt is in care home, states he vapes alcohol intake frequency: a few times a month Alcohol Intake Frequency Comment: 9 months prior used to drink socially substance use type: marijuana and crack/cocaine Last Used Substance Other:: 9 months abo Physical Exam Vital Signs Last Vital Signs Temp 37.1 C 11/21/19 15:31 Pulse 90 11/21/19 15:31 Resp 18 11/21/19 15:31 BP 125/80 11/21/19 15:31 Pulse Ox 98 11/21/19 15:31 Testing Laboratory Results 11/21/19 07:32 11/21/19 07:32 PT 11.5 Seconds (9.0-12.0) 11/19/19 23:50 INR 1.1 (0.9-1.1) 11/19/19 23:50 APTT 33.5 Seconds (21.0-31.0) H 11/19/19 23:50 Urine Color Yellow 11/20/19 01:00 Urine Appearance Clear (Clear) 11/20/19 01:00 Urine pH 5.0 (4.5-7.5) 11/20/19 01:00 Ur Specific [place] 1.009 (1.000-1.030) 11/20/19 01:00 Urine Protein Negative (Negative) 11/20/19 01:00 Urine Glucose (UA) Negative (Negative) 11/20/19 01:00 Urine Ketones Negative (Negative) 11/20/19 01:00 Urine Nitrite Negative (Negative) 11/20/19 01:00 Ur Leukocyte Esterase Negative (Negative) 11/20/19 01:00 11/19/19 23:25 Gram Stain - Final Arm,Right Deep Wound Culture - Preliminary Staphylococcus species 11/19/19 00:39 Aerobic Blood Culture - Preliminary Blood No growth in Aerobic bottle after 24 hours. Anaerobic Blood Culture - Final 11/19/19 23:50 Aerobic Blood Culture - Preliminary Blood No growth in Aerobic bottle after 24 hours. Anaerobic Blood Culture - Preliminary No growth in Anaerobic bottle after 24 hours.
[2019-11-21] MEDS ORDERED: HYDROmorphone INJ 1 MG/ML SYRINGE IV STA (19:41)
[2019-11-21] MEDS ORDERED: BUPIVACAINE/EPINEPHRINE 0.25% 1:200,000 30 ML VIAL ONE (21:24)
--- NOTE | 2019-11-21 22:34 | Anesthesiology Consultation ---
Date of Service November 21, 2019 Assessment & Plan (1) Encounter for pre-operative examination: Chart Review Chart Review: Acceptable Risk for Surgery and Patient NOT seen in Pre Admission Testing Consults Requested none ASA [id number] Proposed Anesthesia Anesthesia Type: MAC Risk / Benefits Reviewed With: PT / POA / Parent / Guardian, Accepts Plan and Informed Consent Obtained History Surgery Operation Date: 11/21/19 20:00 Proposed Procedures p Incision and Drainage General(Right) - Iván Mims, Height/Weight Height: 5 ft 10 in Weight: 134.2 kg Allergies Allergy/AdvReac Type Severity Reaction Status Date / Time No Known Allergies Allergy Verified 11/20/19 00:02 Medications Home Medications Medication Instructions Recorded Confirmed Last Taken ceftriaxone 1 g IM DAILY 11/20/19 11/20/19 11/19/19 docusate sodium 100 mg PO BID 11/20/19 11/20/19 11/19/19 hydrochlorothiazide 12.5 mg PO DAILY 11/20/19 11/20/19 11/19/19 ibuprofen 600 mg PO TID PRN 11/20/19 11/20/19 Unknown losartan 50 mg PO DAILY 11/20/19 11/20/19 11/19/19 omeprazole 20 mg PO BID 11/20/19 11/20/19 11/19/19 rosuvastatin 10 mg PO DAILY 11/20/19 11/20/19 11/19/19 sulfamethoxazole-trimethoprim 1 tab PO BID 11/20/19 11/20/19 11/19/19 [Bactrim DS] Active Medications Generic Name Dose Route Start Last Admin Trade Name Freq PRN Reason Stop Dose Admin Acetaminophen 650 mg 11/20/19 03:55 11/21/19 11:45 Tylenol PO 12/20/19 03:54 650 mg Q4H PRN Administration Pain or Fever Docusate Sodium 100 mg 11/20/19 09:00 11/21/19 20:52 Colace PO 12/20/19 08:59 Not Given BID YOCASTA Piperacillin Sod/Tazobactam 120 mls @ 30 mls/hr 11/20/19 06:00 11/21/19 19:36 Sod 4.5 gm/ Dextrose IV 11/27/19 05:59 Infused Q8H YOCASTA Infusion Protocol Potassium Chloride/Sodium Chloride 20 meq in 1,000 mls @ 80 mls/hr 11/20/19 03:55 11/21/19 20:37 Normal Saline W/20 Meq Kcl IV 12/20/19 03:54 80 mls/hr .[id number] YOCASTA Infusion Vancomycin HCl 1,500 mg/ 530 mls @ 200 mls/hr 11/21/19 12:00 11/21/19 15:29 Sodium Chloride IV 11/27/19 11:59 Infused Q12H YOCASTA Infusion Protocol Clindamycin Phosphate 600 mg/ 54 mls @ 100 mls/hr 11/21/19 12:00 11/21/19 20:37 Dextrose IV 11/28/19 10:29 Infused Q8H YOCASTA Infusion Losartan Potassium 50 mg 11/20/19 09:00 11/21/19 07:34 Cozaar PO 12/20/19 08:59 50 mg DAILY YOCASTA Administration Pantoprazole Sodium 40 mg 11/20/19 09:00 11/21/19 20:52 Protonix PO 12/20/19 08:59 Not Given BID YOCASTA Rosuvastatin Calcium 10 mg 11/20/19 09:00 11/21/19 07:34 Crestor PO 12/20/19 08:59 Not Given DAILY YOCASTA Tramadol HCl 50 mg 11/20/19 03:55 11/21/19 11:46 Ultram PO 12/20/19 03:54 50 mg Q4H PRN Administration Moderate Pain NPO Date Last Intake of Fluids: 11/21/19 Time Last Intake of Fluids: 12:00 Date Last Intake of Solids: 11/21/19 Time Last Intake of Solids: 12:00 Past Medical History Medical History GERD (gastroesophageal reflux disease) Hypertension Obesity Exercise / Class Metabolic Activity II 4-5 Yardwork/Stairs/Walk up hill Past Surgical History Surgical History No pertinent past surgical history Past Anesthesia History No Hx of Anesthesia Complications and No Family Hx of Anesthesia Complications History of PONV No Hx of PONV and No Hx of Motion Sickness Social History Smoking Status: Former smoker Smoking cigarettes per day: pt is in long term, states he vapes alcohol intake frequency: a few times a month Alcohol Intake Frequency Comment: 9 months prior used to drink socially substance use type: marijuana and crack/cocaine Last Used Substance Other:: 9 months abo Physical Exam Vital Signs Last Vital Signs Temp 38.4 C H 11/21/19 19:36 Pulse 90 11/21/19 15:31 Resp 18 11/21/19 15:31 BP 125/80 11/21/19 15:31 Pulse Ox 98 11/21/19 15:31 ENMT Mouth: no dentition abnormality Thyromental Distance: > or= 3.5 Finger Breadths Mallampati Class: II Neck normal visual inspection Respiratory normal respiratory effort Auscultation: lungs clear to auscultation bilaterally Cardiovascular Rate/Rhythm: regular rate and regular rhythm Psychiatric Orientation: alert Testing Laboratory Results 11/21/19 07:32 11/21/19 07:32 PT 11.5 Seconds (9.0-12.0) 11/19/19 23:50 INR 1.1 (0.9-1.1) 11/19/19 23:50 APTT 33.5 Seconds (21.0-31.0) H 11/19/19 23:50 Urine Color Yellow 11/20/19 01:00 Urine Appearance Clear (Clear) 11/20/19 01:00 Urine pH 5.0 (4.5-7.5) 11/20/19 01:00 Ur Specific [place] 1.009 (1.000-1.030) 11/20/19 01:00 Urine Protein Negative (Negative) 11/20/19 01:00 Urine Glucose (UA) Negative (Negative) 11/20/19 01:00 Urine Ketones Negative (Negative) 11/20/19 01:00 Urine Nitrite Negative (Negative) 11/20/19 01:00 Ur Leukocyte Esterase Negative (Negative) 11/20/19 01:00 11/19/19 23:25 Gram Stain - Final Arm,Right Deep Wound Culture - Preliminary Staphylococcus species 11/19/19 00:39 Aerobic Blood Culture - Preliminary Blood No growth in Aerobic bottle after 24 hours. Anaerobic Blood Culture - Final 11/19/19 23:50 Aerobic Blood Culture - Preliminary Blood No growth in Aerobic bottle after 24 hours. Anaerobic Blood Culture - Preliminary No growth in Anaerobic bottle after 24 hours.
[2019-11-21] MEDS ORDERED: KETAMINE HCL INJ 50 MG/ML 10 ML VIAL ONE (22:38)
[2019-11-21] MEDS ORDERED: MIDAZOLAM HCL 1 MG/ML 2ML VIAL ONE (22:38)
[2019-11-21] MEDS ORDERED: fentaNYL citrate 100 MCG/2 ML VIAL ONE (23:01)
--- NOTE | 2019-11-21 23:11 | Operative Report ---
PG Post Operative Report Pre & Post Diagnosis Operation Date: 11/21/19 20:00 Pre-Op Diagnosis: CELLULITIS OF CHEST WALL AND AXILLA Post-Op Diagnosis: right axillary abcess I identified the patient and participated in the time-out.: Yes Procedure Operation Date: 11/21/19 20:00 Actual Procedures p Incision and Drainage of the Right Axillary abcess(Right) - Iván Mims DO Surgeon Iván Mims DO Vp Site yaima Del [facility] Estimated Blood Loss 15 Findings Consistent with Post-Op Diagnosis Specimens abcess fluid for culture Description of Procedure After informed consent was obtained the patient was taken to the operating room and placed in supine position with right arm extended. IV sedation was administered by anesthesia and titrated to effect. 40% Marcaine with epinephrine was used to create a skin wheal over the visible abscess. A 10 blade scalpel was used to make a linear incision. This was carried down through soft tissue using primarily finger fractionation. There was actually 2 abscess pockets that were encountered. They were broken up manually with my index finger primarily. There was a moderate amount of pus. A sample was sent for Gram stain culture and sensitivity. We thoroughly irrigated the abscess pockets. Any small bleeding points were controlled using electrocautery. Half- inch iodoform packing was placed into the abscess pockets. Sterile dressing was applied. The patient was awakened and transferred to recovery in stable condition. My physician visual merchandising assistant was present the entire case. He helped prep the patient. Helped with retraction and exposure as well as dressing placement. I attest to the content of the Intraoperative Record and any orders documented therein. Any exceptions are noted below.
[2019-11-21] MEDS ORDERED: ATROPINE SULFATE 0.1 MG/ML 10ML SYR IV PRN (23:18)
[2019-11-21] MEDS ORDERED: ePHEDrine sulfate 50 MG/ML AMP IV PRN (23:18)
[2019-11-21] MEDS ORDERED: fentaNYL citrate 100 MCG/2 ML VIAL IV PRN (23:18)
[2019-11-21] MEDS ORDERED: ONDANSETRON INJ 2 MG/ML 2 ML VIAL IV PRN ×2 (23:18→23:47)
--- NOTE | 2019-11-21 23:26 | Anesthesiology Progress Note ---
Date of Service November 21, 2019 Anesthesia Post Procedure Vital Signs Vital Signs: Temp Pulse Resp BP BP Pulse Ox 11/21/19 23:23 101 H 18 169/110 H 99 11/21/19 23:20 103 H 18 170/109 H 98 11/21/19 23:10 37.3 C 112 H 18 198/118 H 100 11/21/19 19:36 38.4 C H 11/21/19 15:31 37.1 C 90 18 125/80 98 11/21/19 11:36 37.6 C H 92 H 18 141/87 H 98 11/21/19 07:29 37.2 C 90 18 128/76 98 Pain Intensity Right Axilla: Pain Intensity: 8 Transfer of Care Handoff Completed per policy Notes Mental Status: alert / awake / arousable Patient Amnestic to Procedure: Yes Nausea / Vomiting: adequately controlled Pain: adequately controlled Airway Patency, RR, SpO2: stable & adequate BP & HR: stable & adequate Hydration State: stable & adequate Anesthetic Complications: no major complications apparent
[2019-11-22] MEDS: ACETAMINOPHEN 1,000 MG/100 ML VIAL IV SCH ×3 (00:09→15:44)
[2019-11-22] MEDS: MoRPHine SULFATE 4 MG/ML 1 ML CARP\\VIAL IV PRN ×6 (00:10→22:57)
[2019-11-22] MEDS: OXYCODONE HCL IR 5 MG TAB (IMMEDIATE RELEASE) PO PRN ×2 (02:16→12:46)
[2019-11-22] MEDS: VANCOMYCIN HCL 1,500 MG in SODIUM CHLORIDE 0.9% 500 ML IV SCH ×3 (02:17→20:58)
[2019-11-22] MEDS: PIPERACILLIN/TAZOBACTAM 4.5 GM in DEXTROSE 5% 100 ML IV SCH ×3 (05:30→23:16)
[2019-11-22] MEDS: CLINDAMYCIN 600 MG in DEXTROSE 5% 50 ML IV SCH ×3 (05:31→20:08)
[2019-11-22 06:22] LABS: Basophils # (auto) 0.02 K/uL (0-0.2); Basophils % (auto) 0.1 %; Eosinophils # (auto) 0.29 K/uL (0-0.5); Eosinophils % (auto) 1.8 %; Hematocrit (blood only) 32.3 % (42-52); Hemoglobin 10.8 g/dL (14.0-18.0); Immature Granulocytes # (auto) 0.11 K/uL (0.00-0.02); Immature Granulocytes % (auto) 0.7 %; Lymphocytes # (auto) 3.27 K/uL (1.2-3.4); Lymphocytes % (auto) 20.5 %; Mean Corpuscular Hemoglobin 28.1 pg (25-34); Mean Corpuscular Hgb Conc 33.4 g/dL (32-36); Mean Corpuscular Volume 83.9 fL (80-100); Mean Platelet Volume 11.2 fL (7.4-10.4); Monocytes % (auto) 5.6 %; Neutrophils # (auto) 11.36 K/uL (1.4-6.5); Neutrophils % (auto) 71.3 %; Platelet Count 304 K/uL (130-400); RDW Coefficient of Variation 13.5 % (11.5-14.5); RDW Standard Deviation 41.2 fL (36.4-46.3); Red Blood Count 3.85 M/uL (4.7-6.1); White Blood Count 15.95 K/uL (4.8-10.8)
[2019-11-22 06:44] LABS: Estimated Average Glucose 117 mg/dl; Hemoglobin A1C 5.7 % (4.5-5.6)
[2019-11-22 06:56] LABS: BUN Creatinine Ratio 8.5 (10-20); Creatinine Clr Calc Pharmacy 131.5 ml/min; Est GFR (African American) 104.3; Magnesium 1.9 mg/dl (1.8-2.4); Potassium 3.2 mmol/L (3.5-5.1)
--- NOTE | 2019-11-22 08:12 | Anesthesiology Progress Note ---
Date of Service November 22, 2019 Anesthesia Post Procedure Vital Signs Vital Signs: Temp Pulse Resp BP BP Pulse Ox 11/22/19 07:52 37.1 C 77 18 123/83 95 11/22/19 03:13 37.1 C 92 H 16 114/66 96 11/22/19 02:11 37.4 C 85 20 141/81 H 95 11/22/19 00:49 37.1 C 101 H 20 127/82 97 11/22/19 00:25 38.6 C H 96 H 18 143/88 H 96 11/21/19 23:40 101 H 16 153/90 H 98 11/21/19 23:35 99 H 16 145/89 H 95 11/21/19 23:31 105 H 16 152/89 H 96 11/21/19 23:23 101 H 18 169/110 H 99 11/21/19 23:20 103 H 18 170/109 H 98 11/21/19 23:10 37.3 C 112 H 18 198/118 H 100 11/21/19 19:36 38.4 C H 11/21/19 15:31 37.1 C 90 18 125/80 98 11/21/19 11:36 37.6 C H 92 H 18 141/87 H 98 Pain Intensity Right Axilla: Pain Intensity: 10 Notes Mental Status: alert / awake / arousable and participated in evaluation Patient Amnestic to Procedure: Yes Nausea / Vomiting: adequately controlled Pain: adequately controlled Airway Patency, RR, SpO2: stable & adequate BP & HR: stable & adequate Hydration State: stable & adequate Anesthetic Complications: no major complications apparent and Pt Satisfied with anesthetic care
[2019-11-22] MEDS: DOCUSATE SODIUM 100 MG CAP PO SCH ×2 (08:13→20:57)
[2019-11-22] MEDS: LOSARTAN POTASSIUM 50 MG TAB PO SCH (08:14)
[2019-11-22] MEDS: ROSUVASTATIN CALCIUM 10 MG TAB PO SCH (08:14)
[2019-11-22] MEDS: PANTOprazole 40 MG TAB PO SCH ×2 (08:14→20:56)
[2019-11-22] MEDS: NSS + 20MEQ KCL 20 MEQ/1,000 ML BAG IV SCH ×2 (10:11→12:47)
[2019-11-22] MEDS ORDERED: VANCOMYCIN TROUGH ONE (11:30)
--- NOTE | 2019-11-22 12:11 | Surgery Progress Note ---
Date of Service November 22, 2019 Assessment & Plan (1) Soft tissue abscess: pod 1 doing well continue local dressing changes/antibiotics. Subjective feeling much better. pain dramatically improved. Physical Exam Physical Exam: alert. nad erythema improved. dressing mostly dry with small central drainage. Results & Data Vital Signs (Past 12 Hours) Vital Signs Temp Pulse Resp BP BP Pulse Ox 11/22/19 07:52 37.1 C 77 18 123/83 95 11/22/19 03:13 37.1 C 92 H 16 114/66 96 11/22/19 02:11 37.4 C 85 20 141/81 H 95 11/22/19 00:49 37.1 C 101 H 20 127/82 97 11/22/19 00:25 38.6 C H 96 H 18 143/88 H 96 PG Care Time/CCT Total # of Minutes Spent Total Time Spent with Patient: Total time spent is greater than 50% in coordination of care (as documented) at patient's floor/unit and/or counseling patient: Coding Level of Care Code None Diagnoses Soft tissue abscess L02.91
--- NOTE | 2019-11-22 12:59 | Electrocardiogram Report ---
Test Reason : Blood Pressure : / mmHG Vent. Rate : 096 BPM Atrial Rate : 096 BPM P-R Int : 164 ms QRS Dur : 116 ms QT Int : 340 ms P-R-T Axes : 043 027 010 degrees QTc Int : 429 ms Normal sinus rhythm Borderline IVCD Abnormal ECG No previous ECGs available Confirmed by Sloan Rae ([id number]) on 11/22/2019 12:59:01 PM Referred By: [facility] Confirmed By:Sloan Rae
--- NOTE | 2019-11-22 13:40 | Pharmacy Report ---
Pharmacy Abx Dose Short Note - Date of Service November 22, 2019 - Assessment & Plan Assessment 39 year old M on Day #3 of Vancomycin and Zosyn (pharmacy consults) and Day #2 of Clindamycin (not a pharmacy consult) for treatment of Chest wall and R axilla cellulitis * 24 hour Tmax is 38.6C. Leukocytosis continues to improve: 30.6k --> 21.9k --> 16k. SCr down to 1.04 mg/dL today, eCrCl 132 mL/min. * 11/18 Blood cultures are negative. 11/18 Right arm culture grew MSSA. * 11/20 repeat blood cultures are pending. 11/20 repeat right axilla culture from OR is pending as well but gram stain does show few GPCs. * Recommended de-escalation to cefazolin 2000 mg IV Q8H monotherapy for MSSA. Plan Vancomycin * Trough level of 10.6 mcg/mL is therapeutic for cellulitis * However, dose was given 2 hours late so expect true trough to be less than 10 mcg/mL * Change to 1500 mg (11 mg/kg) IV every 8 hours * Expect patient to start to accumulate vancomycin given elevated BMI * Goal trough: ~ 15 mcg/mL * Trough level ordered for 11/23 to reflect steady state levels Zosyn * 4.5 gm IV every 8 hours for CrCl > 20 mL/min * Appropriate per renal function Pharmacy will continue to follow and will adjust dose/frequency as necessary. Thank you.
[2019-11-22] MEDS ORDERED: POTASSIUM CHLORIDE 20 MEQ TABCR PO STA (18:13)
[2019-11-22] MEDS: TRAMADOL HCL 50 MG TABLET PO PRN (19:38)
[2019-11-22] MEDS: POTASSIUM CHLORIDE 20 MEQ TABCR PO SCH (20:56)
--- NOTE | 2019-11-22 22:31 | Hospitalist Progress Note ---
Date of Service November 22, 2019 Assessment & Plan (1) Cellulitis of right axilla: Cellulitis of right axilla and chest wall/failure of outpatient treatment with ceftriaxone and Bactrim. - Continue vanc/Zosyn - wound is packed.. (2) Hypertension: BP is 140/90 today. - Hold HCTZ for low K+ - Continue losartan (3) GERD (gastroesophageal reflux disease): - Continue PPI (4) Obesity: BMI 42.5. Noted as risk factor for vascular disease. (5) DVT prophylaxis: Heparin 5000 units Q12h Admission and Anticipated Discharge Date Admission Date: November 20, 2019 Subjective Patient reports feeling better today. His wound is packed and states he is surprised at how deep they packed his wound. Review of Systems Review of Systems: The patient denies chest pain, palpitations, shortness of breath, dyspnea on exertion, cough, lower extremity swelling, sore throat, chills, sweats, weight change, fatigue, nausea, vomiting, diarrhea , constipation, abdominal pain, pelvic pain, blood in urine or stool, dysuria, urinary frequency or urgency, lightheadedness, dizziness, headache, memory loss, imbalance, focal or generalized weakness, numbness or tingling in arms or legs, generalized arthralgias or myalgias, back or neck pain, or night sweats. The review of systems is otherwise negative other than for that already noted above, and at least 10 systems have been reviewed. Physical Exam Physical Exam: Constitutional: WD/WN, vitals as above Eyes: EOM intact bilaterally; no conjunctival abnormality ENMT: external ear and nose normal, oropharynx normal Neck: trachea midline, no thyromegaly normal visual inspection Respiratory: normal respiratory effort, lungs clear to auscultation no respiratory distress Cardiovascular: RRR, no murmur, no edema Gastrointestinal (Abdomen): Inspection/Auscultation: abdomen normal to inspection; abdomen not distended Musculoskeletal: no cyanosis or clubbing, extremities motor strength 5/5 Skin: wound is packed. Neurologic: moves all extremities and awake Psychiatric: Orientation: alert, oriented to person and cooperative Results & Data Results & Data ([facility]) Vital Signs (Past 12 Hours) Vital Signs Temp Pulse Resp BP Pulse Ox 11/22/19 15:11 37.2 C 84 16 156/93 H 98 11/22/19 12:51 36.8 C 80 16 133/88 99 PG Care Time/CCT Total # of Minutes Spent Total Time Spent with Patient: Total time spent is greater than 50% in coordination of care (as documented) at patient's floor/unit and/or counseling patient: Coding Level of Care Code 76604 Subseq Hosp Care Lvl 3 Diagnoses Cellulitis of right axilla L03.111 Hypertension I10 GERD (gastroesophageal reflux disease) K21.9 Obesity E66.9 DVT prophylaxis Z29.9 Time Spent (min) 35
[2019-11-22] MEDS: ACETAMINOPHEN 500 MG TAB PO SCH (23:16)
[2019-11-23] MEDS ORDERED: ACETAMINOPHEN 500 MG TAB PO SCH
[2019-11-23] MEDS: MoRPHine SULFATE 4 MG/ML 1 ML CARP\\VIAL IV PRN ×3 (02:50→18:41)
[2019-11-23] MEDS: NSS + 20MEQ KCL 20 MEQ/1,000 ML BAG IV SCH ×2 (02:50→18:35)
[2019-11-23] MEDS: CLINDAMYCIN 600 MG in DEXTROSE 5% 50 ML IV SCH ×2 (03:28→11:14)
[2019-11-23] MEDS: VANCOMYCIN HCL 1,500 MG in SODIUM CHLORIDE 0.9% 500 ML IV SCH ×2 (04:30→11:13)
[2019-11-23] MEDS: PIPERACILLIN/TAZOBACTAM 4.5 GM in DEXTROSE 5% 100 ML IV SCH ×2 (05:26→13:37)
[2019-11-23 06:29] LABS: Hematocrit (blood only) 31.6 % (42-52); Hemoglobin 10.4 g/dL (14.0-18.0); Mean Corpuscular Hgb Conc 32.9 g/dL (32-36); Mean Corpuscular Volume 84.9 fL (80-100); Platelet Count 319 K/uL (130-400); RDW Coefficient of Variation 13.7 % (11.5-14.5); RDW Standard Deviation 42.7 fL (36.4-46.3); Red Blood Count 3.72 M/uL (4.7-6.1); White Blood Count 12.19 K/uL (4.8-10.8)
[2019-11-23 07:05] LABS: Creatinine Clr Calc Pharmacy 145.5 ml/min; Est GFR (African American) 117.9; Est GFR (Non-African American) 101.7
[2019-11-23] MEDS: POTASSIUM CHLORIDE 20 MEQ TABCR PO SCH ×3 (07:19→20:39)
[2019-11-23] MEDS: ACETAMINOPHEN 500 MG TAB PO SCH ×3 (07:19→23:50)
[2019-11-23] MEDS: DOCUSATE SODIUM 100 MG CAP PO SCH ×2 (07:20→20:40)
[2019-11-23] MEDS: ROSUVASTATIN CALCIUM 10 MG TAB PO SCH (07:20)
[2019-11-23] MEDS: PANTOprazole 40 MG TAB PO SCH ×2 (07:20→20:40)
[2019-11-23] MEDS: LOSARTAN POTASSIUM 50 MG TAB PO SCH (07:20)
[2019-11-23] MEDS: OXYCODONE HCL IR 5 MG TAB (IMMEDIATE RELEASE) PO PRN ×2 (13:59→22:22)
[2019-11-23] MEDS: CEFAZOLIN 2000MG 2,000 MG/15 ML SYR IV SCH (19:43)
--- NOTE | 2019-11-23 23:05 | Hospitalist Progress Note ---
Date of Service November 23, 2019 Assessment & Plan (1) Cellulitis of right axilla: Cellulitis of right axilla and chest wall/failure of outpatient treatment with ceftriaxone and Bactrim. - Continue vanc/Zosyn - wound is packed. Having less purulent drainage. Awaiting wound cultures. (2) Hypertension: BP is 140/90 today. - Hold HCTZ for low K+ - Continue losartan (3) GERD (gastroesophageal reflux disease): - Continue PPI (4) Obesity: BMI 42.5. Noted as risk factor for vascular disease. (5) DVT prophylaxis: Heparin 5000 units Q12h Admission and Anticipated Discharge Date Admission Date: November 20, 2019 Subjective Patient reports feeeling better. No fever or chills. Review of Systems Review of Systems: All systems reviewed & are unremarkable except as noted in HPI & below Physical Exam Physical Exam: Constitutional: WD/WN, vitals as above Eyes: EOM intact bilaterally; no conjunctival abnormality ENMT: external ear and nose normal, oropharynx normal Neck: trachea midline, no thyromegaly normal visual inspection Respiratory: normal respiratory effort, lungs clear to auscultation no respiratory distress Cardiovascular: RRR, no murmur, no edema Gastrointestinal (Abdomen): Inspection/Auscultation: abdomen normal to inspection; abdomen not distended Musculoskeletal: no cyanosis or clubbing, extremities motor strength 5/5 Skin: wound is packed. Neurologic: moves all extremities and awake Psychiatric: Orientation: alert, oriented to person and cooperative Results & Data Results & Data ([place]) Vital Signs (Past 12 Hours) Vital Signs Temp Pulse Resp BP Pulse Ox 11/23/19 15:08 37.0 C 79 20 153/89 H 100 PG Care Time/CCT Total # of Minutes Spent Total Time Spent with Patient: Total time spent is greater than 50% in coordination of care (as documented) at patient's floor/unit and/or counseling p atient: Coding Level of Care Code 51849 Subseq Hosp Care Lvl 2 Diagnoses Cellulitis of right axilla L03.111 Hypertension I10 GERD (gastroesophageal reflux disease) K21.9 Obesity E66.9 DVT prophylaxis Z29.9 Time Spent (min) 25
[2019-11-24] MEDS ORDERED: VANCOMYCIN TROUGH ONE (03:30)
[2019-11-24] MEDS: TRAMADOL HCL 50 MG TABLET PO PRN ×2 (03:34→15:40)
[2019-11-24] MEDS: CEFAZOLIN 2000MG 2,000 MG/15 ML SYR IV SCH ×3 (03:34→19:22)
[2019-11-24] MEDS: NSS + 20MEQ KCL 20 MEQ/1,000 ML BAG IV SCH ×2 (06:42→19:22)
[2019-11-24] MEDS: ACETAMINOPHEN 500 MG TAB PO SCH ×3 (07:22→23:54)
[2019-11-24] MEDS: POTASSIUM CHLORIDE 20 MEQ TABCR PO SCH ×2 (07:22→13:27)
[2019-11-24] MEDS: PANTOprazole 40 MG TAB PO SCH ×2 (07:23→20:33)
[2019-11-24] MEDS: LOSARTAN POTASSIUM 50 MG TAB PO SCH (07:23)
[2019-11-24] MEDS: DOCUSATE SODIUM 100 MG CAP PO SCH ×2 (07:23→20:33)
[2019-11-24] MEDS: ROSUVASTATIN CALCIUM 10 MG TAB PO SCH (07:23)
[2019-11-24 17:05] LABS: Hematocrit (blood only) 35.8 % (42-52); Mean Corpuscular Hemoglobin 27.7 pg (25-34); Mean Corpuscular Hgb Conc 33.5 g/dL (32-36); Mean Corpuscular Volume 82.7 fL (80-100); Mean Platelet Volume 10.5 fL (7.4-10.4); Nucleated RBC # (auto) 0.02 K/uL (0-0); Nucleated RBC % (auto) 0.1 %; Platelet Count 367 K/uL (130-400); RDW Coefficient of Variation 13.4 % (11.5-14.5); Red Blood Count 4.33 M/uL (4.7-6.1); White Blood Count 14.05 K/uL (4.8-10.8)
[2019-11-24 17:06] LABS: BUN Creatinine Ratio 9.1 (10-20); Calcium 8.6 mg/dl (8.5-10.1); Creatinine Clr Calc Pharmacy 142.4 ml/min; Est GFR (African American) 114.9; Est GFR (Non-African American) 99.2; Potassium 4.5 mmol/L (3.5-5.1)
--- NOTE | 2019-11-24 23:00 | Hospitalist Progress Note ---
Date of Service November 24, 2019 Assessment & Plan (1) Cellulitis of right axilla: Cellulitis of right axilla and chest wall/failure of outpatient treatment with ceftriaxone and Bactrim. - Continue vanc/Zosyn - wound is packed. Having less purulent drainage. Cultures are showing MSSA. Will taper antibiotics to cefazolin. May consider switching to oral antibiotics if IV line is not working WE KNOW SENSITIVITIES. Will repeat WBC as it is currently showing leukocytosis. will assess patient when packing is changed in AM. will also order procal. (2) Hypertension: BP is 140/90 today. - Hold HCTZ for low K+ - Continue losartan (3) GERD (gastroesophageal reflux disease): - Continue PPI (4) Obesity: BMI 42.5. Noted as risk factor for vascular disease. (5) DVT prophylaxis: Heparin 5000 units Q12h Admission and Anticipated Discharge Date Admission Date: November 20, 2019 Subjective 39 yo male reports feelling better. However he feels that his left arm is tighter today. He notices a bruise on his left rm on the aterior distal third of his biceps. He is wondering about his IV line, if it is working. Review of Systems Review of Systems: All systems reviewed & are unremarkable except as noted in HPI & below Physical Exam Physical Exam: Constitutional: WD/WN, vitals as above Eyes: EOM intact bilaterally; no conjunctival abnormality ENMT: external ear and nose normal, oropharynx normal Neck: trachea midline, no thyromegaly normal visual inspection Respiratory: normal respiratory effort, lungs clear to auscultation no respiratory distress Cardiovascular: RRR, no murmur, no edema Gastrointestinal (Abdomen): Inspection/Auscultation: abdomen normal to inspection; abdomen not distended Musculoskeletal: no cyanosis or clubbing, extremities motor strength 5/5 Skin: wound is packed., on left arm, left forearm is a little indurated Neurologic: moves all extremities and awake Psychiatric: Orientation: alert, oriented to person and cooperative Results & Data Results & Data ([facility]) Vital Signs (Past 12 Hours) Vital Signs Temp Pulse Resp BP Pulse Ox 11/24/19 14:57 37.0 C 71 16 169/101 H 98 PG Care Time/CCT Total # of Minutes Spent Total Time Spent with Patient: Total time spent is greater than 50% in coordination of care (as documented) at patient's floor/unit and/or counseling patient: Coding Level of Care Code 60737 Subseq Hosp Care Lvl 3 Diagnoses Cellulitis of right axilla L03.111 Hypertension I10 GERD (gastroesophageal reflux disease) K21.9 Obesity E66.9 DVT prophylaxis Z29.9 Time Spent (min) 35
[2019-11-25] MEDS: CEFAZOLIN 2000MG 2,000 MG/15 ML SYR IV SCH (05:00)
[2019-11-25 06:17] LABS: Basophils # (auto) 0.04 K/uL (0-0.2); Basophils % (auto) 0.3 %; Eosinophils # (auto) 0.49 K/uL (0-0.5); Eosinophils % (auto) 3.2 %; Hematocrit (blood only) 37.6 % (42-52); Hemoglobin 12.1 g/dL (14.0-18.0); Immature Granulocytes # (auto) 0.74 K/uL (0.00-0.02); Immature Granulocytes % (auto) 4.9 %; Lymphocytes # (auto) 3.31 K/uL (1.2-3.4); Lymphocytes % (auto) 21.8 %; Mean Corpuscular Hemoglobin 27.4 pg (25-34); Mean Corpuscular Hgb Conc 32.2 g/dL (32-36); Mean Corpuscular Volume 85.1 fL (80-100); Mean Platelet Volume 10.1 fL (7.4-10.4); Monocytes # (auto) 1.01 K/uL (0.11-0.59); Monocytes % (auto) 6.6 %; Neutrophils # (auto) 9.62 K/uL (1.4-6.5); Neutrophils % (auto) 63.2 %; Platelet Count 423 K/uL (130-400); RDW Coefficient of Variation 13.8 % (11.5-14.5); RDW Standard Deviation 42.8 fL (36.4-46.3); Red Blood Count 4.42 M/uL (4.7-6.1); White Blood Count 15.21 K/uL (4.8-10.8)
[2019-11-25] MEDS: ROSUVASTATIN CALCIUM 10 MG TAB PO SCH (06:55)
[2019-11-25 06:59] LABS: Albumin Level 2.7 gm/dl (3.4-5.0); BUN Creatinine Ratio 11.6 (10-20); Calcium 8.7 mg/dl (8.5-10.1); Est GFR (African American) 113.5; Est GFR (Non-African American) 97.9; Potassium 4.3 mmol/L (3.5-5.1)
[2019-11-25 07:02] LABS: Albumin Globulin Ratio 0.6 (0.9-2); Bilirubin,Total 0.4 mg/dl (0.2-1); Globulin 4.5 gm/dl (2.5-4.0); Total Protein 7.2 gm/dl (6.4-8.2)
[2019-11-25] MEDS: NSS + 20MEQ KCL 20 MEQ/1,000 ML BAG IV SCH ×2 (07:12→19:37)
[2019-11-25] MEDS: DOCUSATE SODIUM 100 MG CAP PO SCH ×2 (07:13→20:29)
[2019-11-25] MEDS: LOSARTAN POTASSIUM 50 MG TAB PO SCH (07:14)
[2019-11-25] MEDS: PANTOprazole 40 MG TAB PO SCH ×2 (07:14→20:29)
[2019-11-25] MEDS: ACETAMINOPHEN 500 MG TAB PO SCH ×2 (07:14→15:29)
[2019-11-25] MEDS ORDERED: cephALEXin 500 MG CAP PO ONE (10:45)
[2019-11-25] MEDS: TRAMADOL HCL 50 MG TABLET PO PRN ×2 (13:57→19:36)
--- NOTE | 2019-11-25 15:18 | Ultrasound Report ---
US extremity non-vascular ltd CLINICAL HISTORY: rt axilla, pt has infection check for hematoma COMPARISON STUDY: No previous studies for comparison. FINDINGS: No evidence for abscess or collection by ultrasound criteria IMPRESSION: No evidence for abscess or collection by ultrasound criteria. ACT 112: Negative or not required by law. The above report was generated using voice recognition software. It may contain grammatical, syntax or spelling errors. Electronically signed by: Brady Sequeira M.D. 11/25/2019 3:17 PM
--- NOTE | 2019-11-25 16:00 | Ultrasound Report ---
BILIARY ULTRASOUND CLINICAL HISTORY: elevated liver enzymes COMPARISON STUDY: None FINDINGS: The pancreas appears normal as visualized. The gallbladder appears sonographically normal. There is no right-sided hydronephrosis. There is no ductal dilatation. The common bile duct measures 5 mm. No focal hepatic masses are visualized. IMPRESSION: No ultrasonographic abnormalities identified. ACT 112: Negative or not required by law. Electronically signed by: David Iverson M.D. 11/25/2019 3:59 PM
--- NOTE | 2019-11-25 16:02 | Ultrasound Report ---
US extremity non-vascular ltd HISTORY: 39 years-old Male LT ARM ASSESS FOR HEMATOMA acute pain and swelling of the left medial arm biceps region COMPARISON: None TECHNIQUE: Multiple real-time sonographic images of the left medial arm was obtained assessing graysc bernardo appearance and color flow FINDINGS: No soft tissue hematoma, heterogeneity, mass or significant subcutaneous edema identified within the area of clinical concern. IMPRESSION: No abnormality identified. ACT 112: Negative or not required by law. The above report was generated using voice recognition software. It may contain grammatical, syntax o r spelling errors. Electronically signed by: Jean Paul Apodaca M.D. 11/25/2019 4:01 PM
[2019-11-25] MEDS: cephALEXin 500 MG CAP PO SCH ×2 (16:47→20:30)
--- NOTE | 2019-11-25 23:06 | Hospitalist Progress Note ---
Date of Service November 25, 2019 Assessment & Plan (1) Cellulitis of right axilla: Cellulitis of right axilla and chest wall/failure of outpatient treatment with ceftriaxone and Bactrim. - Continue vanc/Zosyn - wound is packed. Having less purulent drainage. Cultures are showing MSSA. Given that arm where IV line is indurated, will switch to PO antibiotics. will do an ultrasound of his left arm. may consider a peripheral smear. viewed the wound, mild discharge, no worsening eyrthema. (2) Hypertension: BP is 140/90 today. - Hold HCTZ for low K+ - Continue losartan (3) GERD (gastroesophageal reflux disease): - Continue PPI (4) Obesity: BMI 42.5. Noted as risk factor for vascular disease. (5) DVT prophylaxis: Heparin 5000 units Q12h Admission and Anticipated Discharge Date Admission Date: November 20, 2019 Subjective Patient reports his left arm is more tense today. He reports no fevers, chills, nausea, vomitiing. Review of Systems Review of Systems: All systems reviewed & are unremarkable except as noted in HPI & below Physical Exam Physical Exam: Constitutional: WD/WN, vitals as above Eyes: EOM intact bilaterally; no conjunctival abnormality ENMT: external ear and nose normal, oropharynx normal Neck: trachea midline, no thyromegaly normal visual inspection Respiratory: normal respiratory effort, lungs clear to auscultation no respiratory distress Cardiovascular: RRR, no murmur, no edema Gastrointestinal (Abdomen): Inspection/Auscultation: abdomen normal to inspection; abdomen not distended Musculoskeletal: no cyanosis or clubbing, extremities motor strength 5/5 Skin: wound is packed., on left arm, left forearm is a little indurated Neurologic: moves all extremities and awake Psychiatric: Orientation: alert, oriented to person and cooperative Results & Data Results & Data ([facility]) Vital Signs (Past 12 Hours) Vital Signs Temp Pulse Resp BP Pulse Ox 11/25/19 15:56 36.8 C 61 16 157/98 H 96 PG Care Time/CCT Total # of Minutes Spent Total Time Spent with Patient: Total time spent is greater than 50% in coordination of care (as documented) at patient's floor/unit and/or counseling patient: Coding Level of Care Code 82741 Subseq Hosp Care Lvl 3 Diagnoses Cellulitis of right axilla L03.111 Hypertension I10 GERD (gastroesophageal reflux disease) K21.9 Obesity E66.9 DVT prophylaxis Z29.9 Time Spent (min) 35
[2019-11-26] MEDS: ACETAMINOPHEN 500 MG TAB PO SCH ×3 (00:23→15:40)
[2019-11-26 07:11] LABS: Hematocrit (blood only) 37.3 % (42-52); Hemoglobin 12.4 g/dL (14.0-18.0); Mean Corpuscular Hemoglobin 28.2 pg (25-34); Mean Corpuscular Hgb Conc 33.2 g/dL (32-36); Mean Corpuscular Volume 84.8 fL (80-100); Mean Platelet Volume 10.1 fL (7.4-10.4); Platelet Count 420 K/uL (130-400); RDW Coefficient of Variation 13.6 % (11.5-14.5); RDW Standard Deviation 41.5 fL (36.4-46.3); White Blood Count 16.47 K/uL (4.8-10.8)
[2019-11-26] MEDS: NSS + 20MEQ KCL 20 MEQ/1,000 ML BAG IV SCH (07:50)
[2019-11-26] MEDS: ROSUVASTATIN CALCIUM 10 MG TAB PO SCH (08:50)
[2019-11-26] MEDS: LOSARTAN POTASSIUM 50 MG TAB PO SCH (08:51)
[2019-11-26] MEDS: PANTOprazole 40 MG TAB PO SCH ×2 (08:51→20:17)
[2019-11-26] MEDS: cephALEXin 500 MG CAP PO SCH ×4 (08:52→20:16)
[2019-11-26] MEDS: DOCUSATE SODIUM 100 MG CAP PO SCH ×3 (08:52→20:16)
[2019-11-26 10:13] LABS: Albumin Level 3.2 gm/dl (3.4-5.0); BUN Creatinine Ratio 11.5 (10-20); Calcium 9.5 mg/dl (8.5-10.1); Est GFR (African American) 113.5; Est GFR (Non-African American) 97.9; Potassium 3.8 mmol/L (3.5-5.1)
[2019-11-26 10:16] LABS: Albumin Globulin Ratio 0.7 (0.9-2); Bilirubin,Total 0.4 mg/dl (0.2-1); Globulin 4.8 gm/dl (2.5-4.0)
--- NOTE | 2019-11-26 10:21 | Surgery Progress Note ---
Date of Service November 26, 2019 Assessment & Plan (1) Soft tissue abscess: Patient s/p I&D of right axilla on 11/20 -Cultures growing staph aureus; changed from IV abx to po keflex yesterday -WBC trending upwards, 16 today from 15. Patient without fevers -Wound evaluated and dressing changed at bedside along with RN and hospitalist. It overall appears to be stable and healing without obvious sign of new or worsening infection. No expanding erythema and there is minimal drainage. -An US was obtained yesterday that revealed no evidence of further abscess of collection. -Hospitalists will order peripheral smear to evaluate for other explanations for leukocytosis. -There was also concern patient's IV was not working well, so he may be behind on abx management -I have left wound care instructions in his discharge paperwork for correctional facility to follow. Upon discharge he may schedule follow up with Dr. Mims within 1-2 weeks Subjective Patient evaluated in his room. Says he is feeling well. Denies much pain to right underarm unless dressing changed. He says pain is much improved and has much less drainage from the site. No fevers. Physical Exam Physical Exam: awake/alert Skin: R axilla with open surgical wound, mild surrounding erythema, also some skin irritation/redness noted from tape. Tenderness to palpation when packing wound Results & Data Diagnostic Findings US extremity non-vascular ltd CLINICAL HISTORY: rt axilla, pt has infection check for hematoma COMPARISON STUDY: No previous studies for comparison. FINDINGS: No evidence for abscess or collection by ultrasound criteria IMPRESSION: No evidence for abscess or collection by ultrasound criteria. ACT 112: Negative or not required by law. PG Care Time/CCT Total # of Minutes Spent Total Time Spent with Patient: Total time spent is greater than 50% in coordination of care (as documented) at patient's floor/unit and/or counseling patient: Coding Level of Care Code None Diagnoses Soft tissue abscess L02.91
[2019-11-26] MEDS ORDERED: AMLODIPINE BESYLATE 5 MG TAB PO ONE (10:29)
[2019-11-26 11:17] LABS: Basophils # (auto) 0.04 K/uL (0-0.2); Basophils % (auto) 0.2 %; Eosinophils # (auto) 0.42 K/uL (0-0.5); Eosinophils % (auto) 2.5 %; Immature Granulocytes # (auto) 0.74 K/uL (0.00-0.02); Immature Granulocytes % (auto) 4.4 %; Lymphocytes # (auto) 3.52 K/uL (1.2-3.4); Lymphocytes % (auto) 21.1 %; Monocytes # (auto) 0.88 K/uL (0.11-0.59); Monocytes % (auto) 5.3 %; Neutrophils # (auto) 11.12 K/uL (1.4-6.5); Neutrophils % (auto) 66.5 %
[2019-11-26] MEDS: TRAMADOL HCL 50 MG TABLET PO PRN (17:52)
[2019-11-26] MEDS: AMLODIPINE BESYLATE 5 MG TAB PO SCH (20:17)
--- NOTE | 2019-11-26 22:40 | Hospitalist Progress Note ---
Date of Service November 26, 2019 Assessment & Plan (1) Cellulitis of right axilla: Cellulitis of right axilla and chest wall/failure of outpatient treatment with ceftriaxone and Bactrim. - Continue vanc/Zosyn - wound is repacked. Concern given how the WBC is going up. However wound does not appear to be worse. No purulent draiange. will obtain peripheral smear. Cultures are showing MSSA. Given that arm where IV line is indurated, will switch to PO antibiotics. . (2) Hypertension: BP is 140/90 today. - Hold HCTZ for low K+ - Continue losartan (3) GERD (gastroesophageal reflux disease): - Continue PPI (4) Obesity: BMI 42.5. Noted as risk factor for vascular disease. (5) DVT prophylaxis: Heparin 5000 units Q12h D/W surgery. Admission and Anticipated Discharge Date Admission Date: November 20, 2019 Subjective Patient reports feeling better. Patient has no new symptoms. He would like to have the IV line removed. Review of Systems Review of Systems: All systems reviewed & are unremarkable except as noted in HPI & below Physical Exam Physical Exam: Constitutional: WD/WN, vitals as above Eyes: EOM intact bilaterally; no conjunctival abnormality ENMT: external ear and nose normal, oropharynx normal Neck: trachea midline, no thyromegaly normal visual inspection Respiratory: normal respiratory effort, lungs clear to auscultation no respiratory distress Cardiovascular: RRR, no murmur, no edema Gastrointestinal (Abdomen): Inspection/Auscultation: abdomen normal to inspection; abdomen not distended Musculoskeletal: no cyanosis or clubbing, extremities motor strength 5/5 Skin: wound is packed., on left arm, left forearm is a little indurated Neurologic: moves all extremities and awake Psychiatric: Orientation: alert, oriented to person and cooperative Results & Data Results & Data ([facility]) Vital Signs (Past 12 Hours) Vital Signs Temp Pulse Resp BP Pulse Ox 11/26/19 15:28 36.9 C 77 16 155/95 H 97 PG Care Time/CCT Total # of Minutes Spent Total Time Spent with Patient: Total time spent is greater than 50% in coordination of care (as documented) at patient's floor/unit and/or counseling patient: Coding Level of Care Code 26295 Subseq Hosp Care Lvl 3 Diagnoses Cellulitis of right axilla L03.111 Hypertension I10 GERD (gastroesophageal reflux disease) K21.9 Obesity E66.9 DVT prophylaxis Z29.9 Time Spent (min) 35
[2019-11-27] MEDS: ACETAMINOPHEN 500 MG TAB PO SCH ×3 (00:23→16:22)
[2019-11-27] MEDS: ROSUVASTATIN CALCIUM 10 MG TAB PO SCH (08:09)
[2019-11-27] MEDS: PANTOprazole 40 MG TAB PO SCH ×2 (08:10→20:24)
[2019-11-27] MEDS: LOSARTAN POTASSIUM 50 MG TAB PO SCH (08:10)
[2019-11-27] MEDS: cephALEXin 500 MG CAP PO SCH ×4 (08:10→20:23)
[2019-11-27] MEDS: DOCUSATE SODIUM 100 MG CAP PO SCH ×2 (08:11→20:24)
[2019-11-27 09:01] LABS: Basophils # (auto) 0.03 K/uL (0-0.2); Basophils % (auto) 0.2 %; Eosinophils # (auto) 0.38 K/uL (0-0.5); Eosinophils % (auto) 2.2 %; Hematocrit (blood only) 38.7 % (42-52); Hemoglobin 12.8 g/dL (14.0-18.0); Immature Granulocytes # (auto) 0.66 K/uL (0.00-0.02); Immature Granulocytes % (auto) 3.9 %; Lymphocytes # (auto) 3.72 K/uL (1.2-3.4); Lymphocytes % (auto) 21.9 %; Mean Corpuscular Hemoglobin 28.1 pg (25-34); Mean Corpuscular Hgb Conc 33.1 g/dL (32-36); Mean Corpuscular Volume 85.1 fL (80-100); Monocytes # (auto) 0.57 K/uL (0.11-0.59); Monocytes % (auto) 3.4 %; Neutrophils # (auto) 11.61 K/uL (1.4-6.5); Neutrophils % (auto) 68.4 %; Platelet Count 487 K/uL (130-400); RDW Coefficient of Variation 13.6 % (11.5-14.5); RDW Standard Deviation 41.8 fL (36.4-46.3); Red Blood Count 4.55 M/uL (4.7-6.1); White Blood Count 16.97 K/uL (4.8-10.8)
[2019-11-27 09:27] LABS: Albumin Level 3.4 gm/dl (3.4-5.0); BUN Creatinine Ratio 12.3 (10-20); Calcium 9.4 mg/dl (8.5-10.1); Creatinine Clr Calc Pharmacy 145.5 ml/min; Est GFR (African American) 117.9; Est GFR (Non-African American) 101.7; Potassium 3.9 mmol/L (3.5-5.1)
[2019-11-27 09:30] LABS: Albumin Globulin Ratio 0.8 (0.9-2); Bilirubin,Total 0.4 mg/dl (0.2-1); Globulin 4.5 gm/dl (2.5-4.0); Total Protein 7.9 gm/dl (6.4-8.2)
[2019-11-27] MEDS: AMLODIPINE BESYLATE 5 MG TAB PO SCH (20:25)
--- NOTE | 2019-11-27 22:20 | Hospitalist Progress Note ---
Date of Service November 27, 2019 Assessment & Plan (1) Cellulitis of right axilla: Cellulitis of right axilla and chest wall/failure of outpatient treatment with ceftriaxone and Bactrim. - Iitally treated with vanc/Zosyn - wound is repacked -Once cultures came back: patient was placed on ancef. However IV line was infiltrated and he was switched to PO cephalexin. Clinically wound looks well, no purulent drainage is noted. However WBC is going up. will obtain peripheral smear awaiting reading. Cultures are showing MSSA. . (2) Hypertension: BP is 140/90 today. - Hold HCTZ for low K+ - Continue losartan (3) GERD (gastroesophageal reflux disease): - Continue PPI (4) Obesity: BMI 42.5. Noted as risk factor for vascular disease. (5) DVT prophylaxis: Heparin 5000 units Q12h D/W surgery. Admission and Anticipated Discharge Date Admission Date: November 20, 2019 Subjective Patient reports feeling well. He is now able to move his arm in every direction. Review of Systems Review of Systems: All systems reviewed & are unremarkable except as noted in HPI & below Physical Exam Physical Exam: Constitutional: WD/WN, vitals as above Eyes: EOM intact bilaterally; no conjunctival abnormality ENMT: external ear and nose normal, oropharynx normal Neck: trachea midline, no thyromegaly normal visual inspection Respiratory: normal respiratory effort, lungs clear to auscultation no respiratory distress Cardiovascular: RRR, no murmur, no edema Gastrointestinal (Abdomen): Inspection/Auscultation: abdomen normal to inspection; abdomen not distended Musculoskeletal: no cyanosis or clubbing, extremities motor strength 5/5 Skin: wound is packed on right axilla, decreased erythema, no longer warm to tocuh, on left arm, left forearm is a little indurated Neurologic: moves all extremities and awake Psychiatric: Orientation: alert, oriented to person and cooperative Results & Data Results & Data ([facility]) Vital Signs (Past 12 Hours) Vital Signs Temp Pulse Resp BP Pulse Ox 11/27/19 16:02 36.7 C 72 16 146/86 H 98 PG Care Time/CCT Total # of Minutes Spent Total Time Spent with Patient: Total time spent is greater than 50% in coordination of care (as documented) at patient's floor/unit and/or counseling patient: Coding Level of Care Code 08285 Subseq Hosp Care Lvl 2 Diagnoses Cellulitis of right axilla L03.111 Hypertension I10 GERD (gastroesophageal reflux disease) K21.9 Obesity E66.9 DVT prophylaxis Z29.9 Time Spent (min) 25
[2019-11-28] MEDS: ACETAMINOPHEN 500 MG TAB PO SCH ×3 (00:13→17:33)
[2019-11-28 07:10] VITALS: BP 131/88; PULSE 68; TEMP 98.4; O2SAT 96
[2019-11-28] MEDS: PANTOprazole 40 MG TAB PO SCH (08:31)
[2019-11-28] MEDS: DOCUSATE SODIUM 100 MG CAP PO SCH (08:31)
[2019-11-28] MEDS: LOSARTAN POTASSIUM 50 MG TAB PO SCH (08:32)
[2019-11-28] MEDS: ROSUVASTATIN CALCIUM 10 MG TAB PO SCH (08:32)
[2019-11-28] MEDS: cephALEXin 500 MG CAP PO SCH ×3 (08:33→17:33)
[2019-11-28 08:57] LABS: Basophils # (auto) 0.04 K/uL (0-0.2); Basophils % (auto) 0.2 %; Eosinophils # (auto) 0.33 K/uL (0-0.5); Eosinophils % (auto) 1.6 %; Hematocrit (blood only) 40.2 % (42-52); Hemoglobin 13.3 g/dL (14.0-18.0); Immature Granulocytes # (auto) 0.59 K/uL (0.00-0.02); Immature Granulocytes % (auto) 2.9 %; Lymphocytes # (auto) 4.17 K/uL (1.2-3.4); Lymphocytes % (auto) 20.2 %; Mean Corpuscular Hemoglobin 28.7 pg (25-34); Mean Corpuscular Hgb Conc 33.1 g/dL (32-36); Mean Corpuscular Volume 86.6 fL (80-100); Monocytes # (auto) 0.74 K/uL (0.11-0.59); Monocytes % (auto) 3.6 %; Neutrophils % (auto) 71.5 %; Platelet Count 535 K/uL (130-400); RDW Coefficient of Variation 13.9 % (11.5-14.5); RDW Standard Deviation 43.5 fL (36.4-46.3); Red Blood Count 4.64 M/uL (4.7-6.1); White Blood Count 20.67 K/uL (4.8-10.8)
[2019-11-28 09:24] LABS: Albumin Level 3.5 gm/dl (3.4-5.0); BUN Creatinine Ratio 14.3 (10-20); C Reactive Protein 1.75 mg/dl (0-0.29); Calcium 9.6 mg/dl (8.5-10.1); Creatinine Clr Calc Pharmacy 143.9 ml/min; Est GFR (African American) 116.4; Est GFR (Non-African American) 100.4; Potassium 4.1 mmol/L (3.5-5.1)
[2019-11-28 09:27] LABS: Albumin Globulin Ratio 0.8 (0.9-2); Bilirubin,Total 0.4 mg/dl (0.2-1); Globulin 4.4 gm/dl (2.5-4.0); Total Protein 7.9 gm/dl (6.4-8.2)
--- NOTE | 2019-11-28 11:58 | Ultrasound Report ---
RIGHT AXILLARY CHEST AND BACK ULTRASOUND CLINICAL HISTORY: Pain and redness. COMPARISON STUDY: No previous studies for comparison. FINDINGS: Ultrasonographic evaluation of the area of clinical concern was performed. No focal masses are visualized. There are no fluid collections to indicate an abscess. IMPRESSION: 1. No focal masses identified. 2. No evidence of abscess. ACT 112: Negative or not required by law. Electronically signed by: David Iverson M.D. 11/28/2019 11:57 AM
[2019-11-28] MEDS ORDERED: cephALEXin 500 MG CAP PO SCH (15:45)
[2019-11-28] MEDS ORDERED: Nursing to Pharmacy Communication SCH (15:45)
--- NOTE | 2019-12-05 23:15 | Discharge Summary ---
Date of Service November 28, 2019 Admission HPI Per Admitting Provider The patient is a 39-year-old male resident of [facility], with a past medical history including hypertension and GERD. He reports that after shaving his axilla, he developed redness, swelling and pain, that did not improve despite being placed on ceftriaxone 1 g IM daily and Bactrim DS p.o. twice daily. He was brought to the ED for further assessment, with work-up in ED including a CT scan which did not show a drainable fluid pocket. Principal Diagnosis cellulitis Discharge Exam Constitutional: WD/WN, vitals as above Eyes: EOM intact bilaterally; no conjunctival abnormality ENMT: external ear and nose normal, oropharynx normal Neck: trachea midline, no thyromegaly normal visual inspection Respiratory: normal respiratory effort, lungs clear to auscultation no respiratory distress Cardiovascular: RRR, no murmur, no edema Gastrointestinal (Abdomen): Inspection/Auscultation: abdomen normal to inspection; abdomen not distended Musculoskeletal: no cyanosis or clubbing, extremities motor strength 5/5 Skin: wound is packed on right axilla, decreased erythema, no longer warm to tocuh, on left arm, left forearm is a little indurated Neurologic: moves all extremities and awake Psychiatric: Orientation: alert, oriented to person and cooperative Discharge Data Allergies Allergy/AdvReac Type Severity Reaction Status Date / Time No Known Allergies Allergy Verified 11/20/19 00:02 Consultations 11/20/19 01:46 ED Decision to Admit Stat 11/20/19 03:55 Consult Case Management - Discharge Planning Routine 11/21/19 10:30 Consult General Surgery Routine Procedures Performed Operation Date: 11/21/19 20:00 Actual Procedures p Incision and Drainage of the Right Axilla(Right) - Iván Mims, DO Ordered Studies 11/19/19 23:44 CT chest wo con Urgent 11/21/19 10:30 US soft tissue ext ltd Stat 11/25/19 08:44 US extremity non-vascular ltd Routine US liver Routine 11/25/19 15:17 US extremity non-vascular ltd Routine 11/28/19 10:49 US effusion-chest/mediastinum Urgent Hospital Course (1) Cellulitis of right axilla: Cellulitis of right axilla and chest wall/failure of outpatient treatment with ceftriaxone and Bactrim. - Iitally treated with vanc/Zosyn - wound is repacked -Once cultures came back: patient was placed on ancef. However IV line was infiltrated and he was switched to PO cephalexin. Clinically wound looks well, no purulent drainage is noted. However WBC is going up. will obtain peripheral smear: normal. 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 will have patient follow up with onc as outpatient. Cultures are showing MSSA. will d/c on oral antibiotics, have patient f/u with surgery as well. . (2) Hypertension: BP is 140/90 today. - Hold HCTZ for low K+ - Continue losartan (3) GERD (gastroesophageal reflux disease): - Continue PPI (4) Obesity: BMI 42.5. Noted as risk factor for vascular disease. (5) DVT prophylaxis: Heparin 5000 units Q12h D/W surgery. Total Time Total Time Spent Total Time Spent (In Minutes): 32 Discharge Plan Discharge Items [facility] Disposition: [facility] Reason For Visit: CELLULITIS OF CHEST WALL AND AXILLA Discharge Diagnosis: cellulitis of chest palmer and axilla Condition on Discharge: Fair Activity: Resume your previous activity Non-emergency contact: Primary Care Provider Call non-emergency contact if: you have any medication questions Follow-up/Referrals: Iván Mims, [Surgeon] - (please call to schedule follow up in clinic within 1 week) Indra GUERRERO [Primary Care Provider] - Diet: Heart Healthy Addtl Attending Provider Instructions: Please have your wound packing changed daily at your facility. Pack wound with 1/2 inch iodoform gauze , cover with dry 4x4 and ABD pad, and adhere with medipore tape. Recommend followup with Dr. Mims in 7-10 days for sugery followup Recommend Followup with Dr. Russ to followup on leukomoid reaction. recheck blood work in 5 days and 10 days. Pending Studies at Discharge: No Stand-Alone Forms: My [facility] Yo que Vos Skilled Items Patient informed of condition?: No Discharge Level of Care: Other Communicable Disease: No Discharge Prognosis: Stable Lines: None Urinary Catheter: No Medications and DC Order Prescriptions: New tramadol 50 mg Tablet 50 mg PO Q4H PRN (Reason: severe pain) Qty: 10 RF: 0 acetaminophen 500 mg Tablet 1,000 mg PO Q8H Qty: 30 RF: 0 cephalexin 500 mg tablet 1,000 mg PO Q6H 10 Days Qty: 80 RF: 0 Continued losartan 50 mg Tablet 50 mg PO DAILY RF: 0 docusate sodium 100 mg Capsule 100 mg PO BID RF: 0 ibuprofen 600 mg Tablet 600 mg PO TID PRN (Reason: Pain) RF: 0 rosuvastatin 10 mg Tablet 10 mg PO DAILY RF: 0 hydrochlorothiazide 12.5 mg Tablet 12.5 mg PO DAILY RF: 0 omeprazole 20 mg Tablet,Delayed Release (Dr/Ec) 20 mg PO BID RF: 0 Discontinued sulfamethoxazole-trimethoprim [Bactrim DS] 800-160 mg Tablet 1 tab PO BID RF: 0 ceftriaxone 1 gram Recon Soln 1 g IM DAILY RF: 0 Discharge Orders: Discharge Order (Routine); Ordered 11/28/19 Ordered By: Renny Powers Admission Data Admit Date/Time: 11/20/19 02:53 Attending Provider: Renny Powers Admit Provider: Rickey Murphy Primary Care Provider: Indra GUERRERO Other Providers: Prasanna Martinez ; Rickey Murphy ; Iván Mims Other Interventions: Discharge Summary Assessment (RN) Last Done: 11/28/19 13:45 DC Date/Time DO NOT enter until pt leaves facility: 11/28/19 18:20 Coding Level of Care Code D/C Day Management >30 mins Diagnoses Cellulitis of right axilla L03.111 Hypertension I10 GERD (gastroesophageal reflux disease) K21.9 Obesity E66.9 DVT prophylaxis Z29.9
== END 2019-11-28 18:20 | DRG 580 ==
LOC: ED 22:44 → SUATTDRO 11-20 02:53 → 2N 11-20 02:53 → 3E 11-21 11:07